=== PATIENT | male | born 1960 | race Caucasian/White ===

== ENCOUNTER → 2018-01-05 11:32 | Outpatient (CLI) | payer BC, SELFPAY ==
[2018-01-05 13:07] LABS: ALT 26 U/L (12-78); AST 17 U/L (15-37); Albumin 4.1 g/dL (3.4-5.0); Alkaline Phosphatase 51 U/L (46-116); Anion Gap 12.6 mmol/L (3-11); BUN 15 mg/dL (7-18); Bilirubin, Total 0.4 mg/dL (0.2-1.0); CO2 24.4 mmol/L (21.0-32.0); CREATININE 1.58 mg/dL (0.70-1.30); Calcium 8.4 mg/dL (8.5-10.1); Chloride 103 mmol/L (98-107); Estimated GFR 45.43 (mL/min/1.73m2); Glucose 103 mg/dL (70-100); Potassium 4.4 mmol/L (3.5-5.1); Sodium 140 mmol/L (136-145); Total Protein 6.9 g/dL (6.4-8.2)
== END ==
PROVIDERS: PCP Nurse Practitioner Family; Visit Provider Nurse Practitioner Family
DX: E83.51 Hypocalcemia (principal)
CPT/HCPCS: 36415; 80053

== ENCOUNTER → 2018-01-06 10:08 | Outpatient (CLI) | payer BC, SELFPAY ==
[2018-01-06 11:57] LABS: Amylase 48 U/L (25-115); Calcium 9.4 mg/dL (8.5-10.1); Magnesium 2.4 mg/dL (1.8-2.4); PHOSPHORUS 4.6 mg/dL (2.6-4.7)
[2018-01-09 10:59] LABS: Parathyroid Hormone,Intact 26 pg/ml (19-88)
[2018-01-10 16:42] LABS: 25-Hydroxy D Total 50 ng/mL; 25-Hydroxy D2 <4.0 ng/mL; 25-Hydroxy D3 50 ng/mL
[2018-01-11 23:24] LABS: 1,25-Dihydroxyvitamin D 34 pg/mL (18-64)
== END ==
PROVIDERS: PCP Nurse Practitioner Family; Visit Provider Nurse Practitioner Family
DX: E83.51 Hypocalcemia (principal)
CPT/HCPCS: 36415; 82306; 82150; 82310; 82652; 83735; 83970; 84100

== ENCOUNTER 2018-06-14 07:20 | Outpatient (CLI) | payer BC, SELFPAY ==
--- NOTE | 2018-06-14 07:23 | DI.RAD_ITS ---
SYMPTOMS/DIAGNOSIS: CHRONIC RT HIP PAIN, M25.551, CHRONIC PAIN, G89.29, ? DJD VS REFERRED FROM LUMBAR RIGHT HIP AND PELVIS: Two views. The right hip is well maintained. The bones are intact and normally mineralized. The sacroiliac joints and symphysis pubis are intact. Moderate degenerative changes are seen in the lower lumbar spine with disc space narrowing, endplate osteophytes and vacuum discs present. IMPRESSION: 1. Negative right hip. 2. Moderate degenerative changes seen in the lumbar spine.
== END 2018-06-14 07:40 ==
PROVIDERS: PCP Nurse Practitioner Family; Visit Provider Nurse Practitioner Family
DX: M25.551 Pain in right hip (principal); G89.29 Other chronic pain; M51.36 Other intervertebral disc degeneration, lumbar region
CPT/HCPCS: 73502

== ENCOUNTER 2019-02-14 13:33 | Outpatient (REF) | payer BC, SELFPAY ==
[2019-02-14 13:17] LABS: Bilirubin Negative (Negative); Blood Trace-intact (Negative); Clarity Clear (Clear); Glucose Negative (Negative); Ketones Negative (Negative); Leukocyte Esterase Negative (Negative); Nitrite Negative (Negative); Specific Gravity 1.015 (1.005-1.025); Urobilinogen 0.2 EU/dL (Up TO 0.2)
[2019-02-14 13:59] LABS: Bacteria Negative HPF (Negative); C & S Indicated? No; Casts Negative LPF (Negative); Crystals Negative HPF (Negative); Epithelial Cells Negative HPF (Negative); Mucus Negative (Negative); Other Cells Rare Renal (Negative); WBC Negative HPF (0-5)
== END 2019-02-14 13:53 ==
LOC: LBN 13:33
PROVIDERS: PCP Nurse Practitioner Family; Visit Provider Nurse Practitioner Gerontology
DX: R31.29 Other microscopic hematuria (principal)
CPT/HCPCS: 81003; 81015

== ENCOUNTER 2019-02-15 08:48 | Outpatient (CLI) | payer BC, SELFPAY ==
[2019-02-15 09:23] LABS: Bilirubin Small (Negative); Blood Moderate (Negative); Clarity Clear (Clear); Glucose Negative (Negative); Ketones 40 mg/dL (Negative); Leukocyte Esterase Negative (Negative); Nitrite Negative (Negative); Urobilinogen 0.2 EU/dL (Up TO 0.2)
[2019-02-15 09:37] LABS: Bacteria Rare HPF (Negative); Casts Negative LPF (Negative); Crystals Negative HPF (Negative); Epithelial Cells Rare HPF (Negative); Mucus Moderate (Negative); RBC 20-50 (0-2); WBC 0-2 HPF (0-5)
[2019-02-15 09:38] LABS: C & S Indicated? No
[2019-02-15 10:03] LABS: ALT 22 U/L (16-63); AST 14 U/L (15-37); Albumin 4.3 g/dL (3.4-5.0); Alkaline Phosphatase 62 U/L (46-116); Anion Gap 8.6 mmol/L (3-11); BUN 13 mg/dL (7-18); Bilirubin, Total 0.8 mg/dL (0.2-1.0); CO2 27.4 mmol/L (21.0-32.0); CREATININE 1.04 mg/dL (0.70-1.30); Calcium 9.7 mg/dL (8.5-10.1); Calculated LDL 94 mg/dL; Chloride 101 mmol/L (98-107); Cholesterol 208 mg/dL (50-200); Glucose 99 mg/dL (70-100); HDL Cholesterol 99 mg/dL (40-60); Sodium 137 mmol/L (136-145); Total Protein 7.7 g/dL (6.4-8.2); Triglyceride 76 mg/dL (30-150)
[2019-02-15 10:11] LABS: TSH (W/Ref FT4) 1.18 uIU/mL (0.36-3.74)
[2019-02-16 10:36] LABS: PSA, Screening 0.8 ng/ml (0-3.5)
== END 2019-02-15 09:08 ==
PROVIDERS: PCP Nurse Practitioner Family; Visit Provider Nurse Practitioner Gerontology
DX: E03.9 Hypothyroidism, unspecified (principal); I10 Essential (primary) hypertension; E78.5 Hyperlipidemia, unspecified; R31.29 Other microscopic hematuria; N40.0 Benign prostatic hyperplasia without lower urinary tract symptoms
CPT/HCPCS: 36415; 80053; 80061; 84153; 81003; 81015; 84443

== ENCOUNTER 2019-05-16 09:35 | Outpatient (CLI) | payer BC, SELFPAY ==
--- NOTE | 2019-05-16 09:11 | DI.RAD_ITS ---
EXAM: XR LUMBAR SPINE COMPLETE INDICATION: r/o bony pathology, tenderness with burning lateral to L4, hip pain rt,. COMPARISON: LUMBAR SPINE COMPLETE from 11/14/2012 TECHNIQUE: 2D digital imaging was performed. FINDINGS: There arefive lumbar type vertebral bodies. There is normal alignment. There is no spondylolysis or spondylolisthesis. Moderate degenerative changes are seen in the lumbar spine, particularly at L4-5 and L5-S1. There is disc space narrowing, subchondral sclerosis and periarticular spurring present. No acute fractures or subluxations are seen. IMPRESSION: Moderate degenerative changes in the lumbar spine.
== END 2019-05-16 09:55 ==
PROVIDERS: PCP Nurse Practitioner Family; Visit Provider Student in an Organized Health Care Education/Training Program
DX: M54.5 Low back pain (principal); M47.817 Spondylosis without myelopathy or radiculopathy, lumbosacral region
CPT/HCPCS: 72110

== ENCOUNTER 2020-02-19 10:37 | Outpatient (REF) | payer BC, SELFPAY ==
[2020-02-20 11:54] LABS: Bilirubin Negative (Negative); Blood Trace-lysed (Negative); Clarity Clear (Clear); Epithelial Cells Rare HPF (Negative); Glucose Negative (Negative); Ketones Negative (Negative); Leukocyte Esterase Negative (Negative); Nitrite Negative (Negative); RBC 0-2 HPF (0-2); Urobilinogen 0.2 EU/dL (Up TO 0.2); WBC Negative HPF (0-5)
[2020-02-20 11:55] LABS: Bacteria Rare HPF (Negative); C & S Indicated? No; Casts Negative LPF (Negative); Crystals Negative HPF (Negative); Mucus Negative (Negative)
== END 2020-02-19 10:57 ==
LOC: LBN 10:37
PROVIDERS: PCP Nurse Practitioner Family; Visit Provider Nurse Practitioner Gerontology
DX: R31.29 Other microscopic hematuria (principal)
CPT/HCPCS: 81003; 81015

== ENCOUNTER 2020-06-10 02:51 | Outpatient (CLI) | payer BC, SELFPAY ==
[2020-06-11 19:29] LABS: COVID-19 RT-PCR UVMMC Result Negative (Negative)
== END 2020-06-10 03:11 ==
PROVIDERS: Surgery; PCP Nurse Practitioner Family; Visit Provider Surgery
DX: Z11.59 Encounter for screening for other viral diseases (principal); Z01.818 Encounter for other preprocedural examination
CPT/HCPCS: U0003

== ENCOUNTER 2020-06-13 06:06 | Day surgery (SDC) | payer BC, SELFPAY ==
[2020-06-13 06:26] VITALS: BP 156/90; PULSE 78; RESP 16; TEMP 37; O2SAT 100
[2020-06-13] MEDS: Lactated Ringers 1,000 ML 80 ML IV (06:43)
--- NOTE | 2020-06-13 07:54 | BOWEL_PTH ---
PATIENT: Ottoniel Dhillon LOC: [facility] U#:[id number] AGE/SX: 60/M ROOM: RE06/13/[address]: Rupa Salguero : 1960 BED: DIS: 06/13/2020 SPEC #: [id number] RECD: 06/13/20 12:13 STATUS: [facility]ERRA REQ #: [id number] KALEY: 06/13/20 07:[address]: Rupa Salguero DEPT: Surgical Specimen RECD BY: Asya Perrin ENTERED: 06/13/20 12:14 SP TYPE: Bowel OTHR DR: Patria Chi, [employer] Tissues: 1 - BIOPSY BOWEL 2 - BIOPSY BOWEL Procedures: GROSS AND MICRO LEVEL 4 Comments: [id number]
--- NOTE | 2020-06-13 08:17 | COLE_ITS ---
Date of service: 06/13/20 Time of Service: 08:17 Colonoscopy Report Date of procedure: 06/13/20 Pre-op diagnosis general: polyps Post-op diagnosis procedure note: other (polyps/diverticula ) Surgeon: Rupa Salguero Anesthesia proc note operative: GETA Estimated blood loss (mL): 1 Pathology: other Disposition: same day Prep: Miralax/Dulcolax Retraction Time: 12 Procedure Description: After informed consent was obtained the patient was taken to the procedure room and placed in a left decubitous position. Monitors were applied and a time out was done. The patients name, date of , procedure, allergies to medications and metal in their body was reviewed. The patient was then sedated. Once sedated and comfortable a rectal exam was done. External exam shows sm ext tag. Internal exam revealed a normal sphincter tone and no palpable masses. The prostate nl. The scope was then introduced and retrofelexed. No internal hemorrhoids were identified. The scope was then advanced to the cecum w/mild difficulty. The TI and appendiceal orifice were identified. The prep was good. Miniscule polyp- 2mm at 80cm; removed w/ a cold focept. Another small,flat <5mm polyp, at 30cm removed w/ cold forcept in total. All specimens are retrieved and no bleeding is noted. He does have small amount of medium sized diverticula confined to the sigmoid colon. There is no signs of active bleeding or infection. There are no AVMs. The mucosa appears pink and healthy. the scope was then slowly retracted over 12 minutes back into the rectum. The scope was removed and the patient was woken up and taken back to Same day surgery in stabl e condition. The patient tolerated the procedure well and there were no immediate complications. Follow up: The patient should follow up in 5-7 years (1 year path pending) unless they develop changes in bowel habits or other new gastrointestinal complaints.
--- NOTE | 2020-06-13 08:21 | W.PM.DSUDISC ---
Discharge Plan Disposition Patient Disposition: HOME Condition: Good Discharge Details Reason For Visit: colonoscopy Attending Provider: Rupa Salguero Primary Care Provider: Patria Chi Home Meds and New Rx's Prescriptions: No Action amlodipine 5 mg tablet 5 mg PO DAILY Qty: 90 RF: 1 atorvastatin 10 mg tablet 10 mg PO DAILY Qty: 90 RF: 1 polyethylene glycol 3350 17 gram/dose powder 238 g PO ONCE Qty: 238 RF: 0 bisacodyl [Dulcolax (bisacodyl)] 5 mg tablet,delayed release (DR/EC) 5 mg PO ONCE Qty: 4 RF: 0 multivitamin [Once Daily] 1 EACH tablet 1 ea PO DAILY RF: 0 aspirin [Lo-Dose Aspirin] 81 MG tablet,delayed release (DR/EC) 81 mg PO DAILY RF: 0 metoprolol succinate 50 mg tablet extended release 24 hr 75 mg PO DAILY Qty: 135 RF: 3 Discharge Instructions Additional Instructions: Findings: diverticula x2 small polyps Follow up: will send a letter w/ results in 2-3 wks and when to repeat the scope. probablt 7-5 yrs start a fiber product, such as psyllium husks daily. Make sure you are moving your bowels regularly and not straining. Please call if you develop: fevers >101.5 Nausea or Vomiting Abdominal pain that is not transient DAY SURGERY UNIT POST COLONOSCOPY INSTRUCTIONS 1. Because there will be medication in your system for the next 24 hours, you may feel a little sleepy. Your coordination will be affected. Therefore: a. Do not drive or operate dangerous equipment for 24 hours. b. Do not drink alcohol beverages for 24 hours (not even beer). c. Plan to go home and rest for the day. 2. Generally there are no restrictions on your activity after a day or so has gone by, but you may feel a bit fatigued for a few days. 3 After you arrive home you may have a light meal and return to a normal diet as you can tolerate it without feeling sick to your stomach. 4. After surgery, you may feel pain or discomfort. This should be only transient, but if it persists please contact your doctor. 5. If there are any questions regarding the findings of your procedure, please feel free to contact your doctor. 6. If you are unable to contact your doctor with a problem, contact the hospital at [phone]. 7. Continue all your regular medications unless directed otherwise. I understand the above instructions and have no questions. Signature of Patient or Responsible Adult Escort Date/Time Name of Responsible Adult Escort Signature of Nurse Date/Time DIVERTICULAR DISEASE OVERVIEW ? A diverticulum is a pouch-like structure that can form through points of weakness in the muscular wall of the colon (ie, at points where blood vessels pass through the wall). Diverticulosis affects men and women equally. The risk of diverticular disease increases with age. It occurs throughout the world but is seen more commonly in developed countries. WHAT IS DIVERTICULAR DISEASE? Diverticulosis ? Diverticulosis merely describes the presence of diverticula. Diverticulosis is often found during a test done for other reasons, such as flexible sigmoidoscopy, colonoscopy, or barium enema. Most people with diverticulosis have no symptoms and will remain symptom free for the rest of their lives. A person with diverticulosis may have diverticulitis, or diverticular bleeding. Diverticulitis ? Inflammation of a diverticulum (diverticulitis) occurs when there is thinning and breakdown of the diverticular wall. This may be caused by increased pressure within the colon or by hardened particles of stool, which can become lodged within the diverticulum. The symptoms of diverticulitis depend upon the degree of inflammation present. The most common symptom is pain in the left lower abdomen. Other symptoms can include nausea and vomiting, constipation, diarrhea, and urinary symptoms such as pain or burning when urinating or the frequent need to urinate. Diverticulitis is divided into simple and complicated forms. ?Simple diverticulitis, which accounts for 75 percent of cases, is not associated with complications and typically responds to medical treatment without surgery. ?Complicated diverticulitis occurs in 25 percent of cases and usually requires surgery. Complications associated with diverticulitis can include the following: ?Abscess ? a localized collection of pus ?Fistula ? an abnormal tract between two areas that are not normally connected (eg, bowel and bladder) ?Obstruction ? a blockage of the colon ?Peritonitis ? infection involving the space around the abdominal organ ?Sepsis ? overwhelming body-wide infection that can lead to failure of multiple organs Diverticular bleeding ? Diverticular bleeding occurs when a small artery located within a diverticulum is eroded and bleeds into the colon. Diverticular bleeding usually causes painless bleeding from the rectum. In approximately 50 percent of cases, the person will see maroon or bright red blood with bowel movements. Is bleeding with a bowel movement normal? ? It is not normal to see blood in a bowel movement; this can be a sign of several conditions, most of which are not serious (eg, hemorrhoids) but some of which are serious and require immediate treatment. Anyone who sees blood after a bowel movement should consult with their healthcare provider to determine if further testing or evaluation is needed. DIVERTICULOSIS AND DIVERTICULITIS DIAGNOSIS ? Diverticulosis is often found during tests performed for other reasons. ?Barium enema ? This is an x-ray study that uses barium in an enema to view the outline of the lower intestinal tract. This is an older test and has been largely replaced by computed tomography (CT) scan. ?Flexible sigmoidoscopy ? This is an examination of the inside of the sigmoid colon with a thin, flexible tube that contains a camera. ?Colonoscopy ? This is an examination of the inside of the entire colon. ?CT scan ? A CT scan is often used to diagnose diverticulitis and its complications. If diverticulitis (not just diverticulosis) is suspected, the above three tests should not be used because of the risk of perforation. TREATMENT Diverticulosis ? People with diverticulosis who do not have symptoms do not require treatment. However, most clinicians recommend increasing fiber in the diet, which can help to bulk the stools and possibly prevent the development of new diverticula, diverticulitis, or diverticular bleeding. Fiber is not proven to prevent these conditions in all patients but may help to control recurrent episodes in some. Increase fiber ? Fruits and vegetables are a good source of fiber. Fiber content of packaged foods can be calculated by reading the nutrition label. Seeds and nuts ? Patients with diverticular disease have historically been advised to avoid whole pieces of fiber (such as seeds, corn, and nuts) because of concern that these foods could cause an episode of diverticulitis. However, this belief is completely unproven. We do not suggest that patients with diverticulosis avoid seeds, corn, or nuts. Diverticulitis ? Treatment of diverticulitis depends upon how severe your symptoms are. Home treatment ? If you have mild symptoms of diverticulitis (mild abdominal pain, usually left lower abdomen), you can be treated at home with a clear liquid diet and oral antibiotics. However, if you develop one or more of the following signs or symptoms, you should seek immediate medical attention: ?Temperature >100.1?F (38?C) ?Worsening or severe abdominal pain ?An inability to tolerate fluids Hospital treatment ? If you have moderate to severe symptoms, you may be hospitalized for treatment. During this time, you are not allowed to eat or drink; antibiotics and fluids are given into a vein. If you develop an abscess of the colon, you may require drainage of the abscess (usually performed by placing a drainage tube across the abdominal wall) or by surgically opening the affected area. Surgery ? If you develop a generalized infection in the abdomen (peritonitis), you will usually require an emergency operation. A two-part operation may be necessary in some cases. ?The first operation involves removal of the diseased colon and creation of a colostomy. A colostomy is an opening between the colon and the skin, where a bag is attached to collect waste from the intestine. The lower end of the colon is temporarily sewed closed to allow it to heal. ?Approximately three to six months later, a second operation is performed to reconnect the two parts of the colon and close the opening in the skin. You are then able to empty your bowels through the rectum. Sometimes patients require up to a year to recover from the first operation, depending on how sick they were. In non-emergency situations, the diseased area of the colon can be removed and the two ends of the colon can be reconnected in one operation, without the need for a colostomy. Surgery versus medical therapy ? An operation to remove the diseased area of the colon may be necessary if you do not improve with medical therapy. After an episode of uncomplicated diverticulitis, elective surgery is generally not required as the risk of another attack or requiring emergency surgery is low. However, patients with persistent symptoms attributable to diverticulitis, a history of complicated diverticulitis, or a compromised immune system should be evaluated for possible surgery to prevent another attack. In such patients, another attack has been associated with a higher risk of complications or . Of course, the decision will also depend in part upon your other medical conditions and ability to undergo surgery. In many cases, an elective operation can be performed laparoscopically, using small incisions, rather than the typical vertical (up and down) abdominal incision. Laparoscopic surgery usually allows you to recover more quickly and shortens the hospital stay. After diverticulitis resolves ? After an episode of diverticulitis resolves, if you have not had a recent colonoscopy, the entire length of the colon should be evaluated to determine the extent of disease and to rule out the presence of abnormal lesions such as polyps or cancer. Recommended tests include colonoscopy, barium enema and sigmoidoscopy, or CT colonography. Diverticular bleeding ? Most cases of diverticular bleeding resolve on their own. However, some people will need further testing or treatment to stop bleeding, which may include a colonoscopy, angiography (a treatment that blocks off the bleeding artery), bleeding scan, or surgery. DIVERTICULAR DISEASE PROGNOSIS Diverticulosis ? Over time, diverticulosis may cause no problems or it may cause episodes of bleeding and/or diverticulitis. Approximately 15 to 25 percent of people with diverticulosis will develop diverticulitis, while 5 to 15 percent will develop diverticular bleeding. Diverticulitis ? Approximately 85 percent of people with uncomplicated diverticulitis will respond to medical treatment, while approximately 15 percent of patients will need an operation. After successful treatment for a first attack of diverticulitis, one-third of patients will remain asymptomatic, one-third will have episodic cramps without diverticulitis, and one-third will go on to have a second attack of diverticulitis. The prognosis tends to remain similar following a second attack of diverticulitis. Only 10 percent of people remain symptom-free after a second attack. Subsequent attacks tend to be of similar severity, not increasing in severity as previously believed. High Fiber Diet What is Dietary Fiber? All fiber comes from plants, bushes, oliver or trees. Of course, the ones that we eat provide us with fruits, vegetables and grains. There are many different types of fiber but the three that are most important to the health of the body are: Insoluble Fiber This fiber does not dissolve in water, nor is it fermented by the bacteria residing in the colon. Rather, it retains water and in so doing, helps to promote a larger, bulkier and more regular bowel activity. This, in turn, may be important in preventing disorder such as diverticulosis and hemorrhoids, and in sweeping out certain toxins and cancer causing carcinogens. Sources of insoluble fiber are: ? whole grain wheat and other whole grains ? corn bran, including popcorn, unflavored and unsweetened ? nuts and seeds ? potatoes and the skins from most fruits from trees such as apples, bananas and avocados ? many green vegetables such as green beans, zucchini, celery and cauliflower ? some fruit plants such as tomatoes and kiwi Soluble Fiber These fibers are fermented or used by the colon bacteria as a food source or nourishment. When these good bacteria grow and thrive, many health benefits occur in both the colon and the body. Soluble fiber is present in some degree in most edible plant foods, but the ones with the most soluble fiber include: ? legumes such as peas and most beans, including soybeans ? oats, rye and barley ? many fruits such as berries, plums, apples bananas and pears ? certain vegetables such as broccoli and carrots ? most root vegetables ? psyllium husk supplement products Prebiotic Soluble Fiber These are relatively newly discovered soluble plant fibers. The technical name for this fiber is inulin or fructan. When these soluble fibers are fermented by the good colon bacteria, some further significant health benefits have been shown to occur by research in many medical centers. These soluble prebiotic fibers occur in significant amounts in: ? asparagus ? yams ? onions ? garlic ? bananas ? leeks ? agave ? chicory and other root vegetables such as [place] artichokes ? wheat, rye and barley (smaller amounts) Benefits of a High Fiber Diet The health benefits of a high fiber diet, consumed on a regular basis and reaching recommended amounts (below), are now fairly well-defined. There are some additional benefits in the early research stage with the prebiotic soluble fibers. What is now known regarding a high fiber diet include: Bowel Regularity A high fiber diet promotes regularity with a softer, bulkier and regular stool pattern. This decreases the chance of hemorrhoids, diverticulosis and perhaps colon cancer. Cholesterol and Reduced Triglycerides The soluble fibers are the ones that will reduce cholesterol levels when used on a regular basis. Psyllium husk and prebiotic soluble fiber will also reduce cholesterol. They may also reduce the incidence of coronary heart disease. Oats, flax seeds and legumes or beans are the recommended fibers. Colon Polyps and Cancer It is still not certain if a high fiber diet helps prevent colon cancer. Considerable research suggests that this may occur. Certainly it makes sense to increase regularity and so speed the movement of cancer causing carcinogens through the bowel. In addition, reducing a heavy meat diet reduces the bile flow from the liver in a favorable way. This, too, reduces the amount of carcinogens that reach and are manufactured in the colon. Finally, a high fiber diet, including prebiotic soluble fiber, increases the integrity and health of the wall of the colon. The risk of cancer may be reduced. Colon Wall Integrity A high fiber diet changes the bacterial makeup of the colon toward a more favorable balance. For instance, it is known that those people with obesity, diabetes type 2 and inflammatory bowel disease have a predominance of bad bacteria in the colon. This, in turn, may render the bowel wall weak and allow bacteria and, indeed, even toxins to seep through. A high fiber diet with a modest reduction in animal and meat products may return the bacterial makeup to a more positive balance. This, in particular, has been seen when the soluble fiber prebiotics are added to the diet. Blood Sugar Soluble fiber such as in legumes (beans), oats and in prebiotic fibers slows the absorption of blood sugar and so helps regulate the sugar in the blood. Insoluble fiber on a regular basis is associated with reduced risk of type 2 diabetes. Weight Loss High fiber diets are more filling and give a sense of fullness sooner than an animal and meat based diet does. In addition, the soluble prebiotic fibers have been shown to turn off the hunger hormones produced in the wall of the gut and to increase the hormones that give a sense of fullness. Those hormones are made in the wall of the gut. New medical research has shown that the bacterial makeup in the colon in overweight people is abnormal to the extent that they manufacture and absorb almost twice the number of calories through the colon wall as do normals. Prebiotic fibers (below) will help change this hormonal balancein a favorable way. Bacteria and the Function of the Colon The colon finishes the digestive process. Hopefully, the waste products move through in a nice regular manner. Insoluble fibers help this process by retaining water and so producing a bulkier, softer stool, which is easy to pass. The additional role of the colon is to provide a home for an enormous number of micro-organisms, mostly bacteria. Recent research has shown that there are over 1,000 species of bacteria with a total bacterial count ten times the number of cells in the body. These bacteria play a major role in keeping the colon wall itself healthy. In addition, these good bacteria produce a very strong immune system for the body. They significantly increase calcium absorption and bone density. They provide other documented benefits. It is the soluble fibers in the diet that are so effective in stimulating the growth of good colon bacteria. How Much is Enough? The amount of fiber in food is measured in grams. National nutritional authorities recommend the following amounts of dietary fiber daily. Under Age 50 Over Age 50 Men 38 grams 30 grams Women 25 grams 21 grams For a week or so, it is best to tally the amount of fiber you are consuming. Boxed and packaged foods will have the amount of fiber per serving on the nutrition label. Which Fibers and Which Foods are Best? As noted, healthy fiber is only found in plants. The three major categories are whole grains, fruits and vegetables. Whole Grains Wheat, oats, barley, wild or brown rice, amaranth, buckwheat, bulgur, corn, millet, quinoa, rye, sorghum, teff and triticals. By far, wheat, oats and wild or brown rice are most common. Always buy whole grain products. White bread, baked goods and rolls almost always are made from wheat flour. Wheat flour is white because most of the fiber, vitamins and other nutrients have been removed. Try not buy enriched grains. What this means is that simple white flour has had vitamins added to it by the director of planning. The word, enriched, implies a good and healthy product. On the contrary, enriched means that most of the fiber has been removed and a few vitamins added. Fruits Fruits come from trees such as apple and pear or from bushes or oliver. You should eat a wide variety of fruits, preferably with every meal. In many cases, the skin of a fruit such as apple will contain much of the insoluble fiber while the pulp contains most of the soluble fiber. To the extent possible, buy organic fruits as these will have little or no pesticides. Always wash fruit. Vegetables Eat a wide variety of vegetables. They should be a mainstay of lunch and dinners. Frozen vegetables retain as much nutrition and fiber as fresh vegetables. As with fruit, try to buy organic to reduce any residual pesticide ingestion. Wash fresh vegetables thoroughly. Cruciferous vegetables such as broccoli, [place] sprouts and cauliflower contain certain chemicals such as sulforaphane. This substance has very strong anti-cancer properties and should be eaten frequently. Legumes, Beans, Peas and Soybeans These vegetables have plenty of soluble fiber and should be part of a varied vegetable intake. Beans, in particular, contain a certain type of fiber that may lead to harmless gas or bloating. Nuts and Seeds These are rich sources of fiber and are a good substitute for sweets such as candies and baked sweet goods. While nuts and seeds are rich in fiber, they also contain vegetable fat and so can and do add calories. Read the Labels As noted, fresh and frozen foods are usually better. They have good nutrition and few, if any, chemicals added to them. When buying packaged foods and, in particular grains, look for three things: ? The first word on the label should be whole, such as whole wheat or whole grain. ? Check out the calories and the amount of fiber in a serving. ? How many and what other additives or chemicals are added. Fewer is always better. Do you know what each additive does? Some are added not for the benefit of the beeswax bleacher but rather for manufacturers. These could and do include sugar, artificial flavor, chemicals to prevent oxidation and spoilage, emulsifiers to blend the product. You have to be a laborer cutting tool. Fiber Facts, Nuggets and Pearls ? For breakfast you can easily get the day started well by using a high fiber, whole grain cereal. Check the labels. Add fruit such as blueberries and bananas. If you are an egg eater, use whole wheat or grain toast. Adding wheat germ gives you a good fiber kick. ? Always use whole grain or wheat with rolls and sandwiches. Does your fast food store not have them? Perhaps you look elsewhere. Eating an occasional black harper or veggie burger provides variety. ? Snacks should consist of fruit and/or nuts. While nuts are loaded with fiber, they are an energy rich food, meaning they have a lot of calories in a small packet. ? Fruit juices should contain pulp. Clear juices such as clear orange, pear or apple juice contain little fiber and have a lot of fructose. Prune juice is usually high in fiber. ? Homemade soups ? adding fresh or frozen vegetables to a chicken or vegetable stock is a good way to start homemade soup. ? Salads ? adding cooked and then chilled vegetables provide great flavoring to almost any salad. Remember, a atkins salad has lots of cooked corn in it. Small slices of apples or oranges and nuts such as chopped walnuts or sliced almonds always adds taste, variety and fiber to almost any salad. ? Fruit ? Try to eat fruit of some type with almost every meal. ? Rethink how you place the various foods on your dinner plate. Reducing the portions of the meat or animal food portion to the side with equal or more portions of vegetables, legumes and fruits portion always allows for more fiber. There was never anything magic about making the meat or animal food portion the main part of the dinner plate. Eating from smaller plates can, over time, trick your mind and termite exterminator habit of using a dinner plate. Again, there is nothing magic in an 11, 12, or 13 inch dinner plate. Fiber Supplements There are a variety of fiber supplements available on the food or pharmacy shelves. Psyllium This soluble plant fiber has been used in [place] for over 2,000 years. It is a soluble fiber with mucilage in it. This acts to retain a lot of water and also is fermented by colon bacteria. When 7 grams a day are used, it does lower cholesterol. Metamucil in various forms is psyllium. Methyl Cellulose All the cellulose products come from finely ground wood chips which are then treated in a variety of ways such as boiling in acids. Methyl cellulose is an insoluble fiber which does dissolve in water. It is also an emulsifier, meaning it blends oils and water. Citrucel is methyl cellulose (MC). MC may not be appropriate for Crohn?s disease or ulcerative colitis as several medical studies have shown that certain emulsifiers dissolve the mucous lining of the colon in animals prone to Crohn?s disease. This then allows bacteria to invade the underlying tissue. Inulin Inulin is a soluble prebiotic fiber found in many foods and which are fermented mostly in the left side of the colon. It is available in a supplement as generic inulin and in Fiber Choice. Oligofructose FOS These are also prebiotic fibers. They are fermented very quickly in the right side of the colon. Prebiotin This product is a combination of oligofructose, which feeds the bacteria in the right side of the colon and inulin, which does the same in the left side of the colon. There seems to be a benefit for this particular formula based on medical research. Prebiotic Soluble Fiber These may be the healthiest of all the soluble fibers. They grow in many plants and have had a great deal of research done on them in the last 10-15 years. These fibers are found in asparagus, yams and other root vegetables such as chicory, garlic, onion, leeks and in smaller amounts in wheat. This research has shown the following: ? Increase in good and decrease in bad colon bacteria ? Increase calcium absorption and enhanced bone mass ? Enhanced immune system ? Appetite and weight control by changing the hormone appetite signals to the brain ? May decrease colon cancer incidence ? Reduce or correct a leaky colon Eating a wide variety of plant food up to the recommended amount will likely give you enough prebiotic fiber. Supplements such as Prebiotin can be added to the diet. Short Chain Fatty Acids (SCFA) Some rather remarkable research findings have shown that one of the benefits of ingesting a lot of soluble fiber, in particular the prebiotic ones, results in larger amounts of SCFAs in the colon. These SCFAs are made by the good bacteria in the colon such as Bifidobacter and Lactobacillus. These small molecules have been shown to do the following: ? Enhance the health and integrity of the colon wall ? Provide nourishment for the cells that actually line the colon ? Increases the acidity of the colon which is a very real health benefit ? Stabilize blood sugar for diabetics ? Reduce blood cholesterol and triglyceride ? Significantly enhance immunity ? May be a benefit for Crohn?s disease and ulcerative colitis patients Fiber and Gas Everyone has intestinal gas and that is a good thing. It means that bacteria, hopefully the good ones, are thriving. The normal amount of flatus passed each day depends on sex and what is eaten. The normal number of flatus is 10-20 times a day. When the bacteria that make intestinal gases are growing, it also means that other good bacteria are using the same fibers to grow and produce multiple health benefits, including the production of healthy short-chain fatty acids. These substances are produced quietly in the colon and produce many health-related outcomes. Soluble fiber should always be used in a gradual manner. If too much is consumed at any one time, then excess, but harmless, intestinal gas can occur. People with irritable bowel syndrome are particularly prone to bloating and mild cramping. In this instance, soluble fiber in the diet or supplement should be used in small doses and increased gradually. Finally, prebiotic fibers tend to cause the production of short-chain fatty acids which acidify the colon. This, in turn, reduces or stops the growth of bacteria that make the smelly hydrogen sulfide gases that produce noxious flatus. People who consume many vegetables with prebiotics or take a prebiotic fiber supplement often have non-odoriferous flatus. Fiber and Irritable Bowel Syndrome Irritable bowel syndrome (IBS) is one of the most common disorders of the lower digestive tract. The symptoms of IBS can be quite varied. They can be a mix of several symptoms such as constipation, diarrhea, crampy abdominal discomfort, bloating and gas. An attack of IBS can be triggered by emotional tension and anxiety, poor dietary habits and certain medications. It is now known that infections in the intestine can lead to long-term IBS symptoms. Increased amounts of fiber in the diet can help relieve the symptoms of irritable bowel syndrome by producing soft, bulky stools. This helps to normalize the time it takes for the stool to pass through the colon. Recent medical research with newer techniques has shown some surprising and dramatic findings for IBS patients. Specifically, there is a very significant and abnormal shift of bacteria from those that provide health benefits to those bad bacteria that we really do not want in the gut. The technical name for this bad group of bacteria is called Firmicutes. Along with this abnormal bacterial collection, there is a smoldering low-grade inflammation in the gut wall that may contribute to symptoms. The goal for IBS patients should be to gradually increase the soluble dietary fibers in the diet so as to promote the growth of good bacteria and so suppress the bad ones along with the associated inflammation. IBS patients need to be careful of the amount of soluble fiber they consume. The reason for this is that, while the good colon bacteria thrive on these fibers and produce health benefits, other gas-forming bacteria may generate excessive but harmless gas and subsequent bloating. Thus, soluble plant fibers or a dietary prebiotic supplement should be taken in small initial doses and then gradually increased to tolerance. Fiber and Colon Polyps/Cancer Colon cancer is a major health problem. This disease is most common in Western cultures. It is not seen very often in rural cultures where the diet is mostly plant based. Usually, colon cancer starts out as a colon polyp, a benign mushroom-shaped growth. In time it grows, and in some people it becomes cancerous. Colon cancer is usually always curable if polyps are removed when found or if surgery is performed at an early stage. It is now known that people can inherit the risk of developing colon cancer, but diet is important, too. As noted, there is a very low rate of colon cancer in residents of countries where grains are unprocessed and retain their fiber. It seems that in the [place] world, cancer-containing agents (carcinogens) remain in contact with the colon wall for a longer time and in higher concentrations. So, a large bulky stool may act to dilute these carcinogens by moving them through the bowel more quickly. Less carcinogenic exposure to the colon may mean fewer colon polyps and less cancer. A very current review of the entire world?s literature on the effect of fiber on colon polyps and cancer prevention has shown rather clearly that for every 10 grams of fiber added to the diet, there is a 10% reduction in incidence of colon cancer. So the recommended 30 gram fiber diet would result in a 30% less chance of getting these tumors. There are also substances produced in the colon by the good bacteria that seem to retard certain pre-cancer factors from developing. They are called short-chain fatty acids (SCFA). See above for description of SCFAs. A high fiber diet increases these substances. So, the combination of dietary fiber and the production of short-chain fatty acids have a clear health benefit. Fiber and Diverticulosis Prolonged, vigorous contraction of the colon over a long period of time may result in diverticulosis. This increased pressure causes small and, eventually, larger ballooning pockets to form. These pockets by themselves cause no problem. However, sometimes they become infected (diverticulitis) or even break open (perforate) causing infection or inflammation within the abdomen (peritonitis). A high fiber diet increases the bulk in the stool and thereby reduces the pressure within the colon. By so doing, the formation of pockets may be reduced or possibly even stopped. In the past, many physicians were fearful that seeds as in tomatoes, nuts or berries were harmful and could get inside these pockets and rattle around, causing damage. We now know that this has never been the case and that these foods contain lots of fiber and are actually beneficial for diverticulosis patients. Certain bulking agents such as psyllium are traditional types of bulk producing supplements. Psyllium is a soluble fiber. Combining it with insoluble fiber as in wheat bran or corn bran (no gluten) can enhance this bulking effect even more. A product containing a prebiotic, psyllium and wheat bran is probably a very good combination for bowel regularity. Prebiotin Regularity/Diverticulosis is one such product. Activity:: No strenuous activity or lifting over 20 pounds x 24 hours. Diet:: Small light meals x24 hours if needed Discharge Orders Discharge Orders: Discharge Order (Routine); Ordered 06/13/20 Ordered By: Rupa Salguero DS: Diagnosis Discharge Diagnosis (1) Adenomatous polyps: Status: Acute (2) Diverticula of colon: Status: Acute
[2020-06-13 08:33] VITALS: BP 108/71; PULSE 62; RESP 16; TEMP 36.7; O2SAT 100
== END 2020-06-13 08:59 | disposition home or self-care (01) ==
PROVIDERS: PCP Nurse Practitioner Family; Visit Provider Surgery
PROC: 0DJD8ZZ Inspection of Lower Intestinal Tract, Via Natural or Artificial Opening Endoscopic (ICD-10-PCS; CPT 45378; principal; 2020-06-13 07:30)
DX: Z12.11 Encounter for screening for malignant neoplasm of colon (principal); Z86.010 Personal history of colon polyps; K57.30 Diverticulosis of large intestine without perforation or abscess without bleeding; Z80.0 Family history of malignant neoplasm of digestive organs; I10 Essential (primary) hypertension; K21.9 Gastro-esophageal reflux disease without esophagitis; K63.5 Polyp of colon
CPT/HCPCS: 45380; 88305; J2001; J2250; J2405; J2704

== ENCOUNTER 2020-08-04 09:44 | Outpatient (CLI) | payer BC, SELFPAY ==
[2020-08-05 11:47] LABS: COVID-19 RT-PCR UVMMC Result Negative (Negative)
== END 2020-08-04 09:45 | disposition home or self-care (01) ==
LOC: LBO 09:44
PROVIDERS: PCP Nurse Practitioner Family; Visit Provider Nurse Practitioner Family
DX: Z20.822 Contact with and (suspected) exposure to COVID-19 (principal)
CPT/HCPCS: U0003

== ENCOUNTER 2020-09-03 03:38 | Outpatient (CLI) | payer BC, SELFPAY ==
[2020-09-03 07:10] LABS: Abs Immature Grans 0.02 10^3/uL (0.0-0.06); Absolute Basophil Count 0.04 10^3/uL (0.0-0.2); Absolute Eosinophil Count 0.12 10^3/uL (0.0-0.7); Absolute Lymphocyte Count 2.22 10^3/uL (1.2-3.4); Absolute Monocyte Count 0.65 10^3/uL (0.1-0.8); Absolute Neutrophil Count 3.51 10^3/uL (1.2-6.7); Basophils % 0.6; Eosinophils % 1.8; HCT 44.2 % (40.0-50.0); Immature Grans % 0.3; Lymphocytes % 33.8; MCH 31.1 pg (27.0-33.0); MCHC 33.9 % (32.0-36.0); MCV 91.7 fL (80-95); MPV 8.6 fL (8.0-11.0); Monocytes % 9.9; Neutrophils % 53.6; Nucleated RBC 0 %; Platelet Count 284 10^3/uL (130-400); RBC 4.82 10^6/uL (4.36-5.78); RDW 13.4 % (11.8-14.1); WBC 6.56 10^3/uL (4.4-10.8)
[2020-09-03 08:25] LABS: ALT 30 U/L (16-63); AST 20 U/L (15-37); Albumin 4.2 g/dL (3.4-5.0); Alkaline Phosphatase 48 U/L (46-116); BUN 16 mg/dL (7-18); Bilirubin, Total 0.5 mg/dL (0.2-1.0); CREATININE 1.1 mg/dL (0.70-1.30); Calculated LDL 70 mg/dL (<100); Chloride 103 mmol/L (98-107); Cholesterol 175 mg/dL (<200); Glucose 118 mg/dL (74-106); HDL Cholesterol 100 mg/dL (40-60); Potassium 5.2 mmol/L (3.5-5.1); Sodium 141 mmol/L (136-145); Total Protein 7.2 g/dL (6.4-8.2); Triglyceride 29 mg/dL (<150)
[2020-09-03 10:05] LABS: Hemoglobin A1C 5.8 % (<5.7)
== END 2020-09-03 03:39 | disposition home or self-care (01) ==
LOC: LBO 03:38
PROVIDERS: PCP Nurse Practitioner Family; Visit Provider Nurse Practitioner Family
DX: I10 Essential (primary) hypertension (principal); R73.01 Impaired fasting glucose; E78.5 Hyperlipidemia, unspecified; Z51.81 Encounter for therapeutic drug level monitoring
CPT/HCPCS: 36415; 80053; 80061; 83036; 85025

== ENCOUNTER 2020-09-05 10:12 | Outpatient (REF) | payer BC, SELFPAY ==
[2020-09-05 13:37] LABS: Potassium 4.7 mmol/L (3.5-5.1)
== END 2020-09-05 10:13 | disposition home or self-care (01) ==
LOC: LBN 10:12
PROVIDERS: PCP Nurse Practitioner Family; Visit Provider Nurse Practitioner Family
DX: E87.5 Hyperkalemia (principal)
CPT/HCPCS: 84132

== ENCOUNTER 2021-01-23 20:29 | Outpatient (REF) | payer BC, SELFPAY ==
[2021-01-25 12:51] LABS: COVID-19 RT-PCR UVMMC Result Negative (Negative)
== END 2021-01-23 20:30 | disposition home or self-care (01) ==
LOC: LBN 20:29
PROVIDERS: PCP Nurse Practitioner Family; Visit Provider Student in an Organized Health Care Education/Training Program
DX: Z20.822 Contact with and (suspected) exposure to COVID-19 (principal); R05 Cough
CPT/HCPCS: U0003

== ENCOUNTER → 2021-01-26 15:58 | Outpatient (CLI) | payer BC, SELFPAY ==
--- NOTE | 2021-01-26 12:23 | DI.RAD_ITS ---
Exam(s) XR CHEST 2V PA LATERAL EXAM: XR CHEST 2V PA LATERAL CLINICAL HISTORY: r/o pneumonia R05 COUGH. TECHNIQUE: 2D digital imaging was performed. COMPARISON: CR CHEST 2 VIEWS PA,LAT from 11/21/2017 FINDINGS: Heart size is normal. The mediastinum is not widened. Lungs are clear. No infiltrates nor pleural effusions. IMPRESSION: No acute pulmonary findings.No significant change compared to November 2017. DATA REPOSITORY: RADIATION DOSE DELIVERED:
== END ==
PROVIDERS: PCP Nurse Practitioner Family; Visit Provider Student in an Organized Health Care Education/Training Program
DX: R05 Cough (principal)
CPT/HCPCS: 71046

== ENCOUNTER 2021-03-02 14:51 | Outpatient (REF) | payer BC, SELFPAY ==
[2021-03-02 14:21] LABS: Bilirubin Negative (Negative); Blood Small (Negative); Clarity Clear (Clear); Glucose Negative (Negative); Ketones Negative (Negative); Leukocyte Esterase Negative (Negative); Nitrite Negative (Negative); Specific Gravity 1.025 (1.005-1.025)
[2021-03-02 14:28] LABS: Bacteria Negative HPF (Negative); Casts Negative LPF (Negative); Crystals Negative HPF (Negative); Epithelial Cells Rare HPF (Negative); Mucus Negative (Negative); WBC Negative HPF (0-5)
[2021-03-02 14:29] LABS: C & S Indicated? No
== END 2021-03-02 14:52 | disposition home or self-care (01) ==
LOC: LBN 14:51
PROVIDERS: PCP Nurse Practitioner Family; Visit Provider Nurse Practitioner Gerontology
DX: R31.29 Other microscopic hematuria (principal)
CPT/HCPCS: 81003; 81015

== ENCOUNTER 2021-03-03 03:58 | Outpatient (CLI) | payer BC, SELFPAY ==
[2021-03-03 17:24] LABS: PSA, Screening 0.6 ng/mL (0.0-4.5)
== END 2021-03-03 03:59 | disposition home or self-care (01) ==
LOC: LBO 03:58
PROVIDERS: PCP Nurse Practitioner Family; Visit Provider Nurse Practitioner Gerontology
DX: N40.0 Benign prostatic hyperplasia without lower urinary tract symptoms (principal); Z12.5 Encounter for screening for malignant neoplasm of prostate
CPT/HCPCS: 36415; 84153

== ENCOUNTER 2021-08-03 15:20 | Outpatient (REF) | payer BC, SELFPAY ==
[2021-08-04 20:16] LABS: Influenza A RNA Result Negative (Negative); Influenza B RNA Result Negative (Negative); RSV RNA Result Negative (Negative)
== END 2021-08-03 15:21 | disposition home or self-care (01) ==
LOC: LBN 15:20
PROVIDERS: PCP Nurse Practitioner Family; Visit Provider Family Medicine
DX: J01.90 Acute sinusitis, unspecified (principal)
CPT/HCPCS: 87631

== ENCOUNTER 2021-09-24 02:29 | Outpatient (CLI) | payer BC, SELFPAY ==
[2021-09-24 08:21] LABS: Abs Immature Grans 0.01 10^3/uL (0.0-0.06); Absolute Basophil Count 0.06 10^3/uL (0.0-0.2); Absolute Eosinophil Count 0.27 10^3/uL (0.0-0.7); Absolute Lymphocyte Count 2.21 10^3/uL (1.2-3.4); Absolute Monocyte Count 0.78 10^3/uL (0.1-0.8); Absolute Neutrophil Count 4.49 10^3/uL (1.2-6.7); Basophils % 0.8; Eosinophils % 3.5; HCT 40.8 % (40.0-50.0); HGB 13.9 g/dL (13.5-17.5); Immature Grans % 0.1; Lymphocytes % 28.3; MCH 31.3 pg (27.0-33.0); MCHC 34.1 % (32.0-36.0); MCV 91.9 fL (80-95); Neutrophils % 57.3; Platelet Count 261 10^3/uL (130-400); RBC 4.44 10^6/uL (4.36-5.78); RDW 13.7 % (11.8-14.1); RDW-SD 47.2 fL; WBC 7.82 10^3/uL (4.4-10.8)
[2021-09-24 08:40] LABS: Hemoglobin A1C 5.6 % (<5.7)
[2021-09-24 10:02] LABS: ALT 21 U/L (16-63); AST 16 U/L (15-37); Albumin 4.2 g/dL (3.4-5.0); Alkaline Phosphatase 47 U/L (46-116); Anion Gap 6.4 mmol/L (3-11); BUN 21 mg/dL (7-18); Bilirubin, Total 0.4 mg/dL (0.2-1.0); CO2 28.6 mmol/L (21.0-32.0); Calcium 8.8 mg/dL (8.5-10.1); Calculated LDL 85 mg/dL (<100); Chloride 101 mmol/L (98-107); Cholesterol 183 mg/dL (<200); Glucose 101 mg/dL (74-106); HDL Cholesterol 93 mg/dL (40-60); Potassium 5.2 mmol/L (3.5-5.1); Sodium 136 mmol/L (136-145); Triglyceride 25 mg/dL (<150)
== END 2021-09-24 02:30 | disposition home or self-care (01) ==
LOC: LBO 02:29
PROVIDERS: PCP Nurse Practitioner Family; Visit Provider Nurse Practitioner Family
DX: I10 Essential (primary) hypertension (principal); E78.5 Hyperlipidemia, unspecified; R73.01 Impaired fasting glucose; Z51.81 Encounter for therapeutic drug level monitoring
CPT/HCPCS: 36415; 80053; 80061; 83036; 85025

== ENCOUNTER 2021-10-06 00:34 | Outpatient (CLI) | payer BC, SELFPAY ==
--- NOTE | 2021-10-06 15:26 | DI.RAD_ITS ---
Exam(s) XR SHOULDER LT COMPLETE 2+V EXAM: XR SHOULDER LT COMPLETE 2+V CLINICAL HISTORY: chronic L shoulder pain, decreased rom, G89.29, M25.512, M25.619. TECHNIQUE: 2D digital imaging was performed. COMPARISON: No exams were available for comparison FINDINGS: No evidence of fracture or dislocation. However, there are advanced [id number] osteoarthritic dege nerative changes in the glenohumeral joint and a large reich-type osteophyte on the inferior articula r surface of the humeral head. No calcifications in the subacromial space. AC joint appears unremar kable. No osseous lesions. No soft tissue calcifications. There are advanced osteoarthritic degenerative changes glenohumeral joint. IMPRESSION: DATA REPOSITORY: RADIATION DOSE DELIVERED:
== END 2021-10-06 00:54 ==
LOC: DI 00:34
PROVIDERS: PCP Nurse Practitioner Family; Visit Provider Nurse Practitioner Family
DX: M25.512 Pain in left shoulder (principal); M25.612 Stiffness of left shoulder, not elsewhere classified; G89.29 Other chronic pain; M19.012 Primary osteoarthritis, left shoulder
CPT/HCPCS: 73030

== ENCOUNTER 2021-11-06 01:57 | Outpatient (CLI) | payer BC, SELFPAY ==
[2021-11-06] MEDS: Inhaler, Assist Device 1 EACH MC (09:00)
[2021-11-06] MEDS: Albuterol HFA 18 GM 200 PUFF INH IH (09:00)
--- NOTE | 2021-11-09 12:58 | W.PFT ---
Date of service: 11/09/21 Time of Service: 08:03 Pulmonary Function Test Result Requesting Provider Patria Chi Indications: Chronic cough Interpretation Spirometry: There is no airflow limitation, there is no significant bronchodilator response. Lung Volumes: Lung volumes are within normal limits. Diffusion Capacity: Diffusion is normal Airway Pressure: Airways resistance is normal. Impression Normal pulmonary function testing. Clinical Correlation therefore is recommended.
== END 2021-11-06 01:58 | disposition home or self-care (01) ==
LOC: RT 01:58
PROVIDERS: PCP Nurse Practitioner Family; Visit Provider Nurse Practitioner Family
DX: R05.8 Other specified cough (principal); Z72.0 Tobacco use
CPT/HCPCS: 94060; 94726; 94729

== ENCOUNTER 2021-11-19 02:32 | Outpatient (CLI) | payer BC, SELFPAY ==
--- NOTE | 2021-11-19 07:30 | DI.RAD_ITS ---
Exam(s) RF JOINT INJECTION FLUORO GUID EXAM: RF JOINT INJECTION FLUORO GUID CLINICAL HISTORY: L SHOULDER PAIN,M75.22,OA AND TENDINITIS,M19.012,FLUORO GUIDED INJECTION TECHNIQUE: Fluoroscopy provided. Radiologist not present. CONTRAST MATERIAL: None COMPARISON: No exams were available for comparison FINDINGS: Fluoroscopy was provided for therapeutic left shoulder injection. Submitted image(s) reveal needle tip superomedial aspect humeral head. Intra-articular contrast inje cted. Please refer to the procedure report for complete details. Cumulative Dose: Ka,r=not given mGy IMPRESSION: RADIATION DOSE DELIVERED:
--- NOTE | 2021-11-19 14:42 | W.PROCNOTE ---
Date of service: 11/19/21 Time of Service: 14:42 Procedure Note Date of procedure: 11/19/21 Procedure: Left Shoulder Injection Surgeon/Proceduralist/Physician: Fermin Hardwick Procedure Diagnosis: Left Glenohumeral Arthritis Procedure Indications: Ottoniel has had persistent pain of the LEFT shoulder. Noninvasive measures have been tried. To serve as both diagnostic and therapeutic, an injection under fluoroscopy was recommended. I had discussed the risks of the procedure and the patient elected to proceed. Procedure Description: Ottoniel was greeted in the flouroscopy room. The correct side was identified and the consent was reviewed with the patient and signed. The patient was then placed in the supine position on the fluoroscopy table. The LEFT shoulder was then prepped with Chloraprep. The anterior injection starting point was identiifed by bony landmarks and fluoroscopy. The skin and soft tissue in the tract of the injection was anesthetized with 1% Lidocaine. A spinal needle was then inserted deep into the shoulder joint at the level of the recess between the glenoid and superior humeral head. A small amount of Omnipaque solution was injected to confirm intraarticular placement. Once confirmed, the shoulder was injected with 4cc of 0.5% Bupivicaine and 80mg of Depo-Medrol. A bandaid was placed on the injection site. The patient tolerated the procedure well and noted improvement in pre-injection pain.
== END 2021-11-19 02:52 ==
LOC: DI 02:32
PROVIDERS: PCP Nurse Practitioner Family; Visit Provider Student in an Organized Health Care Education/Training Program
DX: M19.012 Primary osteoarthritis, left shoulder (principal); M75.22 Bicipital tendinitis, left shoulder; M25.512 Pain in left shoulder
CPT/HCPCS: 20610; 77002

== ENCOUNTER 2021-12-21 17:22 | Outpatient (REF) | payer BC, SELFPAY ==
[2021-12-21 20:21] LABS: Bilirubin Negative (Negative); Blood Moderate (Negative); Clarity Clear (Clear); Glucose Negative (Negative); Ketones Negative (Negative); Leukocyte Esterase Negative (Negative); Nitrite Negative (Negative); Specific Gravity >= 1.030 (1.005-1.025); Urobilinogen 0.2 EU/dL (Up TO 0.2)
[2021-12-21 20:27] LABS: Bacteria Negative HPF (Negative); C & S Indicated? No; Crystals Negative HPF (Negative); Epithelial Cells Negative HPF (Negative); Mucus Negative (Negative); RBC 0-2 HPF (0-2); WBC Negative HPF (0-5)
== END 2021-12-21 17:23 | disposition home or self-care (01) ==
LOC: LBN 17:22
PROVIDERS: PCP Nurse Practitioner Family; Visit Provider Nurse Practitioner Gerontology
DX: R31.29 Other microscopic hematuria (principal)
CPT/HCPCS: 81003; 81015

== ENCOUNTER 2022-02-22 14:51 | Outpatient (REF) | payer BC, SELFPAY ==
[2022-02-24 11:15] LABS: COVID-19 RT-PCR UVMMC Result Negative (Negative)
== END 2022-02-22 14:52 | disposition home or self-care (01) ==
LOC: LBN 14:51
PROVIDERS: PCP Nurse Practitioner Family; Visit Provider Nurse Practitioner
DX: Z20.822 Contact with and (suspected) exposure to COVID-19 (principal)
CPT/HCPCS: U0003

== ENCOUNTER 2022-07-22 00:25 | Outpatient (CLI) | payer BC, SELFPAY ==
--- NOTE | 2022-07-22 07:45 | DI.RAD_ITS ---
Exam(s) RF JOINT INJECTION FLUORO GUID EXAM: RF JOINT INJECTION FLUORO GUID CLINICAL HISTORY: LEFT SHOULDER inj under fluoro, arthritis lt glenohumeral joint,m19.012 TECHNIQUE: Fluoroscopy provided. Radiologist not present. CONTRAST MATERIAL: None COMPARISON: No exams were available for comparison FINDINGS: Fluoroscopy was provided for Dr. Hardwick during left shoulder injection. Please refer to the procedure report for complete details. Cumulative Dose: Ka,r=0.166 mGy IMPRESSION: RADIATION DOSE DELIVERED:
--- NOTE | 2022-07-22 14:37 | W.PROCNOTE ---
Date of service: 07/22/22 Time of Service: 14:38 Procedure Note Date of procedure: 07/22/22 Procedure: Left Shoulder Injection Surgeon/Proceduralist/Physician: Fermin Hardwick Procedure Diagnosis: Left Shoulder Arthritis Procedure Indications: Ottoniel has had persistent pain of the LEFT shoulder. Noninvasive measures have been tried. To serve as both diagnostic and therapeutic, an injection under fluoroscopy was recommended. I had discussed the risks of the procedure and the patient elected to proceed. Procedure Description: Ottoniel was greeted in the flouroscopy room. The correct side was identified and the consent was reviewed with the patient and signed. The patient was then placed in the supine position on the fluoroscopy table. The LEFT shoulder was then prepped with Chloraprep. The anterior injection starting point was identiifed by bony landmarks and fluoroscopy. The skin and soft tissue in the tract of the injection was anesthetized with 1% Lidocaine. A spinal needle was then inserted deep into the shoulder joint at the level of the recess between the glenoid and superior humeral head. A small amount of Omnipaque solution was injected to confirm intraarticular placement. Once confirmed, the shoulder was injected with 5cc of 0.5% Bupivicaine and 80mg of Depo-Medrol. A bandaid was placed on the injection site. The patient tolerated the procedure well and noted improvement in pre-injection pain.
[2022-07-22] MEDS: Bupivacaine 0.5% Pres-Free 10 ML VIAL 6 ML IJ (14:47)
[2022-07-22] MEDS: methylPREDNISolone ACETATE 80 MG/ML VIAL IM (14:47)
== END 2022-07-22 00:45 ==
LOC: DI 00:25
PROVIDERS: PCP Nurse Practitioner Family; Visit Provider Student in an Organized Health Care Education/Training Program
DX: M19.012 Primary osteoarthritis, left shoulder (principal)
CPT/HCPCS: 20610; 77002; J1040

== ENCOUNTER 2022-10-01 01:13 | Outpatient (CLI) | payer BC, SELFPAY ==
[2022-10-01 08:13] LABS: Abs Immature Grans 0.03 10^3/uL (0.0-0.06); Absolute Basophil Count 0.06 10^3/uL (0.0-0.2); Absolute Eosinophil Count 0.11 10^3/uL (0.0-0.7); Absolute Lymphocyte Count 2.48 10^3/uL (1.2-3.4); Absolute Monocyte Count 0.79 10^3/uL (0.1-0.8); Absolute Neutrophil Count 3.68 10^3/uL (1.2-6.7); Basophils % 0.8; Eosinophils % 1.5; HCT 43.1 % (40.0-50.0); HGB 14.9 g/dL (13.5-17.5); Immature Grans % 0.4; Lymphocytes % 34.7; MCH 31.8 pg (27.0-33.0); MCHC 34.6 % (32.0-36.0); MCV 92 fL (80-95); MPV 8.6 fL (8.0-11.0); Neutrophils % 51.6; Platelet Count 304 10^3/uL (130-400); RBC 4.69 10^6/uL (4.36-5.78); RDW 13.4 % (11.8-14.1); RDW-SD 45.7 fL; WBC 7.15 10^3/uL (4.4-10.8)
[2022-10-01 08:36] LABS: Hemoglobin A1C 5.4 % (<5.7)
[2022-10-01 10:09] LABS: ALT 21 U/L (16-63); AST 16 U/L (15-37); Albumin 4.1 g/dL (3.4-5.0); Alkaline Phosphatase 51 U/L (46-116); Anion Gap 7.8 mmol/L (3-11); BUN 11 mg/dL (7-18); Bilirubin, Total 0.5 mg/dL (0.2-1.0); CO2 28.2 mmol/L (21.0-32.0); CREATININE 1.1 mg/dL (0.70-1.30); Calculated LDL 84 mg/dL (<100); Chloride 100 mmol/L (98-107); Cholesterol 186 mg/dL (<200); Glucose 120 mg/dL (74-106); HDL Cholesterol 95 mg/dL (40-60); Potassium 4.8 mmol/L (3.5-5.1); Sodium 136 mmol/L (136-145); Total Protein 7.5 g/dL (6.4-8.2); Triglyceride 37 mg/dL (<150)
== END 2022-10-01 01:14 | disposition home or self-care (01) ==
LOC: LBO 01:14
PROVIDERS: PCP Nurse Practitioner Family; Referring Provider Nurse Practitioner Family; Visit Provider Nurse Practitioner Family
DX: R73.01 Impaired fasting glucose (principal); I10 Essential (primary) hypertension; E78.5 Hyperlipidemia, unspecified; Z51.81 Encounter for therapeutic drug level monitoring
CPT/HCPCS: 36415; 80053; 80061; 83036; 85025

== ENCOUNTER 2022-11-17 12:56 | Outpatient (REF) | payer BC, SELFPAY ==
[2022-11-17 13:05] LABS: Bilirubin Negative (Negative); Blood Moderate (Negative); Clarity Clear (Clear); Glucose Negative (Negative); Ketones 15 mg/dL (Negative); Leukocyte Esterase Negative (Negative); Nitrite Negative (Negative); Urobilinogen 0.2 mg/dL (Up to 0.2)
[2022-11-17 13:17] LABS: WBC 0-2 HPF (0-5)
[2022-11-17 13:18] LABS: Bacteria Rare HPF (Negative); C & S Indicated? No; Casts Negative LPF (Negative); Crystals Negative HPF (Negative); Epithelial Cells Rare HPF (Negative); Mucus Negative (Negative)
== END 2022-11-17 12:57 | disposition home or self-care (01) ==
LOC: LBN 12:56
PROVIDERS: PCP Nurse Practitioner Family; Visit Provider Nurse Practitioner Gerontology
DX: R31.29 Other microscopic hematuria (principal)
CPT/HCPCS: 81003; 81015

== ENCOUNTER 2022-11-24 01:40 | Outpatient (CLI) | payer BC, SELFPAY ==
--- NOTE | 2022-11-24 07:33 | DI.RAD_ITS ---
Exam(s) RF JOINT INJ. FLUORO GUID RAD EXAM: RF JOINT INJ. FLUORO GUID RAD CLINICAL HISTORY: L SHOULDER PAIN, TENDINITIS LONG HEAD BICEPS BRACHII, ARTHRITIS, M75.22, M1. The Patient has had persistent left shoulder pain. Noninvasive measures have been tried. To serve as gurinder th diagnostic and therapeutic, an injection under fluoroscopy was recommended. The risks of the proc edure were discussed with their Orthopedic provider and the patient elected to proceed. TECHNIQUE: 2D and realtime digital imaging was performed. CONTRAST MATERIAL: Water soluble contrast was utilized. COMPARISON: No exams were available for comparison FINDINGS: The Patient was greeted in the fluoroscopy room. The correct side was identified and the consent was reviewed with the patient and was signed. The patient was properly positioned on the fluoroscopy ta ble. The left shoulderwas then prepped with Chloraprep and draped. The left shoulder injection star ting point was identified by the bony landmarks and fluoroscopy. The skin and soft tissue in the tra ct of the injection was anesthetized with 1% Lidocaine. A spinal needle was then inserted into the l eftshoulder joint under fluoroscopic guidance. A small amount of Omnipaque solution was injected to confirm intraarticular placement. Once confirmed, the leftshoulder was injected with 5cc of a soluti on containing 0.5% Bupivaine and 80 mg of Depo-Medrol. A bandaid was placed on the injection site. The patient tolerated the procedure well and left the department in good condition. IMPRESSION: Successful left shoulder injection. RADIATION DOSE DELIVERED: Ka,r=3 mGy
[2022-11-24 09:03] LABS: CREATININE 0.9 mg/dL (0.70-1.30); Estimated GFR 96.57 (mL/min/1.73m2)
[2022-11-24] MEDS: Normal Saline - Diluent 50 ML VIAL IJ (10:23)
[2022-11-24] MEDS: Bupivacaine 0.5% Pres-Free 10 ML VIAL IJ (10:25)
[2022-11-24] MEDS: Omnipaque 300 MG/ML 10 ML BTL IJ (10:25)
[2022-11-24] MEDS: methylPREDNISolone ACETATE 80 MG/ML VIAL IM (10:25)
== END 2022-11-24 02:00 ==
LOC: DI 01:40
PROVIDERS: Nurse Practitioner Gerontology; PCP Nurse Practitioner Family; Visit Provider Student in an Organized Health Care Education/Training Program
DX: R31.9 Hematuria, unspecified (principal); M19.012 Primary osteoarthritis, left shoulder; M75.22 Bicipital tendinitis, left shoulder
CPT/HCPCS: 20610; 77001; 82565; J1040

== ENCOUNTER 2022-12-04 17:07 | Emergency (ER) | payer BC, SELFPAY ==
[2022-12-04 17:11] VITALS: BP 172/93; PULSE 89; RESP 16; TEMP 37; O2SAT 99
[2022-12-04] MEDS: amLODIPine 5 MG TAB 10 MG PO (18:43)
--- NOTE | 2022-12-04 19:13 | W.ED.GENAD ---
Discharge Plan Disposition Patient Disposition: Home Discharge Details Clinical Impression: Hypertension, Chronic neck pain, Headache Primary Care Provider: Patria Chi ED Provider: Akira Herring Home Meds and New Rx's Prescriptions: Continued nicotine 21-14-7 mg/24 hr patch, TD daily, sequential See Rx Instructions transdermal .COMPLEX Qty: 56 0RF Rx Instructions: apply 1-21 mg NICOTINE PATCH daily for 28 days; follow with 1-14 mg PATCH daily for 14 days, then 1-7mg PATCH daily for 14 days transdermal nicotine (polacrilex) 4 mg lozenge 4 mg buccal Q6H PRN (Reason: nicotine cravings) Qty: 72 1RF Rx Instructions: Trial while decreasing smkg (Bronchitis) albuterol sulfate 90 mcg/actuation HFA aerosol inhaler 2 puff inhalation QID PRN (Reason: shortness of breath or wheezing) Patient Comments: Please use 2/day x 1 week. Rx Instructions: Dispense brand best covered under insurance terazosin 1 mg capsule 1 mg PO QHS Qty: 90 3RF multivitamin [Once Daily] 1 EACH tablet 1 ea PO DAILY aspirin [Lo-Dose Aspirin] 81 MG tablet,delayed release (DR/EC) 81 mg PO DAILY atorvastatin 10 mg tablet 10 mg PO DAILY Qty: 90 3RF metoprolol succinate 50 mg tablet extended release 24 hr 75 mg PO DAILY Qty: 135 3RF amlodipine 5 mg tablet 5 mg PO DAILY Qty: 90 3RF Discharge Instructions Instructions: Hypertension (ED) Additional Instructions: At this time no emergent findings were noted on your work-up. Please resume your amlodipine and continue to monitor blood pressure. Return for any new or significant worsening symptoms otherwise follow-up your primary care provider preferably in the next week for recheck of your symptoms and pressure. Referrals: Patria Chi, MICHAEL [Primary Care Provider] - Medical Decision Making Patient presenting the emergency department for chief complaint of hypertension. He states that over the past couple months he has not been feeling well which has worsened over the last couple days. He has noticed that his blood pressure being elevated. He has been off his amlodipine due to running out and not refilling it. Patient denies any focal neurological findings. Physical exam is unremarkable with no findings. Patient is hypertensive 172/93. Initially discussed with patient giving him his amlodipine and monitoring symptoms versus full work-up. We will give medication and monitor after shared decision-making was utilized and decided to start with more conservative management. I do not feel that patient symptoms are consistent with any endorgan damage from hypertension. We will give patient 10 mg of amlodipine and monitor Patient had improvement of blood pressure with reading of 147/97. While blood pressure did improve he still stated significant head pressure patient with no focal findings. Given that patient is still symptomatic in spite of reduction of his blood pressure we will proceed with full work-up. Labs reviewed and CBC is overall nondiagnostic, CMP shows slightly low sodium otherwise unremarkable CMP, TSH within normal range and salicylates were checked because patient states daily use of aspirin for neck pain which was nontoxic. CTA brain and neck was reviewed and shows some sinusitis and degenerative changes in the neck otherwise no acute intracranial findings or severe carotid findings except for mild atherosclerosis. Patient's blood pressure continue to improve so we will discharge patient with represcribing his amlodipine and have patient follow-up with primary care provider in 1 week for recheck of blood pressure and symptoms. After discussion of diagnosis and plan of care patient has no further needs, questions, or concerns and states clear understanding to return to the emergency department for any worsening symptoms. This documentation was generated using [employer] dictation system, please disregard any oddities of phrase or misspellings. Imaging Data Radiologic Study: Imaging: CT Scan Radiologist's impression: Exam(s) PROCEDURE INFORMATION: Exam: CTA Head Without And With Contrast, Arteriography Exam date and time: 12/04/2022 9:04 PM Age: 62 years old Clinical indication: Pain; Headache TECHNIQUE: Imaging protocol: Computed tomographic angiography of the head without and with contrast. Exam focused on the arteries. 3D rendering (Not supervised by radiologist): MIP and/or 3D reconstructed images were created by the technologist. Contrast material: OMNIPAQUE 350; Contrast volume: 85 ml; Contrast route: INTRAVENOUS (IV); COMPARISON: MRI - BRAIN WO CONTRAST 11/21/2017 4:25 PM FINDINGS: ANTERIOR CIRCULATION: Right internal carotid artery: Calcification of the cavernous and intradural right internal carotid artery with mild vessel stenosis. No aneurysm or dissection. Right middle cerebral artery: No occlusion or significant stenosis. No aneurysm. Right anterior cerebral artery: No occlusion or significant stenosis. No aneurysm. Left internal carotid artery: Calcified plaque of the cavernous left internal carotid artery without significant vessel stenosis. No aneurysm or dissection. Left middle cerebral artery: No occlusion or significant stenosis. No aneurysm. Left anterior cerebral artery: No occlusion or significant stenosis. No aneurysm. POSTERIOR CIRCULATION: Right vertebral artery: No occlusion or significant stenosis. No aneurysm. Left vertebral artery: No occlusion or significant stenosis. No aneurysm. Basilar artery: No occlusion or significant stenosis. No aneurysm. Right posterior cerebral artery: No occlusion or significant stenosis. No aneurysm. Left posterior cerebral artery: No occlusion or significant stenosis. No aneurysm. Veins: No evidence of venous sinus thrombosis. HEAD: Brain: Normal. No hemorrhage. Unremarkable white matter. No mass effect. Cerebral ventricles: Normal. No ventriculomegaly. Bones/joints: Unremarkable. No acute fracture. Paranasal sinuses: Partial opacification of the left maxillary sinus with frothy secretions. Mastoid air cells: Visualized mastoids are normal. No mastoid effusion. Soft tissues: Unremarkable. IMPRESSION: 1. No large vessel occlusion. 2. Partial opacification of the left maxillary sinus may be related to infectious or inflammatory change. PROCEDURE INFORMATION: Exam: CTA Neck With Contrast Exam date and time: 12/04/2022 9:04 PM Age: 62 years old Clinical indication: Pain; Headache TECHNIQUE: Imaging protocol: Computed tomographic angiography of the neck with contrast. 3D rendering (Not supervised by radiologist): MIP and/or 3D reconstructed images were created by the technologist. Contrast material: OMNIPAQUE 350; Contrast volume: 85 ml; Contrast route: INTRAVENOUS (IV); COMPARISON: CT CHEST LUNG CANCER SCREEN 10/18/2022 7:57 AM FINDINGS: Right common carotid artery: Mild calcification of the right common carotid artery without significant stenosis. No aneurysm or dissection. Right internal carotid artery: No stenosis at the right internal carotid artery origin (0% by NASCET criteria). Significant distal vessel tortuosity without kinking. No aneurysm or dissection. Right external carotid artery: Calcified plaque at the right external carotid artery origin with mild stenosis. Left common carotid artery: No stenosis. No dissection or occlusion. Left internal carotid artery: No significant stenosis at the left internal carotid artery origin (0% by NASCET criteria). Significant distal vessel tortuosity without kinking. No aneurysm or dissection. Left external carotid artery: No occlusion or stenosis of the origin. Right vertebral artery: The right vertebral artery is dominant, a normal variant. Moderate tortuosity. No aneurysm or dissection. Left vertebral artery: Moderate tortuosity of the left vertebral artery without aneurysm or dissection. Aorta: Minimal calcification at the aortic arch and great vessel origins. Soft tissues: Normal. No significant soft tissue swelling. Bones/joints: Diffuse degenerative changes of the visualized cervicothoracic spine, with grade 1 anterolisthesis of C3 and retrolisthesis of C4 resulting in likely moderate spinal canal stenosis at C4-C5. IMPRESSION: 1. Mild atherosclerosis of the neck without significant vessel stenosis. 2. Diffuse degenerative changes of the spine, with likely moderate spinal canal stenosis at C4-C5. Lab Data Lab results reviewed: Yes I reviewed the patient's lab results. HPI General Mode of arrival: ambulatory. Date/Time Provider Initiated Documentation: 12/04/22 17:13. Limitations to Documentation: no limitations. Information obtained by: patient, family and RN notes reviewed. History of Present Illness 62 year old M presents to the emergency department with the chief complaint of Elevated blood pressure reading, feeling off, Patient started experiencing this week(s) (3) and it has been constant. No relieving factors improve symptom(s), Medication worsens symptoms (Ran out of amlodipine) and Other factors that worsen symptoms (Situational stress) . Patient did receive the following treatments prior to arrival, none Related Data Home Medications Medication Instructions Recorded Confirmed aspirin 81 mg tablet,delayed 81 mg PO DAILY 08/21/12 11/30/22 release (Lo-Dose Aspirin) multivitamin (Once Daily tablet) 1 ea PO DAILY 08/21/12 11/30/22 atorvastatin 10 mg tablet 10 mg PO DAILY #90 tab-caps 08/29/20 11/30/22 albuterol sulfate 90 mcg/actuation 2 puff inhalation QID PRN 01/23/21 11/30/22 aerosol inhaler shortness of breath or wheezing nicotine (polacrilex) 4 mg buccal 4 mg buccal Q6H PRN nicotine 01/23/21 11/30/22 lozenge cravings #72 ea nicotine See Rx Instructions transdermal 01/23/21 11/30/22 21mg/24hr-14mg/24hr-7mg/24hr daily .COMPLEX #56 patches transderm patches,sequentl metoprolol succinate 50 mg 75 mg PO DAILY #135 tab-caps 06/16/22 11/30/22 tablet,extended release 24 hr terazosin 1 mg capsule 1 mg PO QHS #90 tab-caps 11/17/22 11/30/22 amlodipine 5 mg tablet 5 mg PO DAILY #90 tab-caps 12/04/22 Previous Rx's Medication Instructions Recorded atorvastatin 10 mg tablet 10 mg PO DAILY #90 tab-caps 08/29/20 nicotine (polacrilex) 4 mg buccal 4 mg buccal Q6H PRN nicotine 01/23/21 lozenge cravings #72 ea nicotine See Rx Instructions transdermal 01/23/21 21mg/24hr-14mg/24hr-7mg/24hr daily .COMPLEX #56 patches transderm patches,sequentl metoprolol succinate 50 mg 75 mg PO DAILY #135 tab-caps 06/16/22 tablet,extended release 24 hr terazosin 1 mg capsule 1 mg PO QHS #90 tab-caps 11/17/22 amlodipine 5 mg tablet 5 mg PO DAILY #90 tab-caps 12/04/22 Allergies Allergy/AdvReac Type Severity Reaction Status Date / Time bupropion HCl AdvReac Intermediate heart Verified 10/08/22 08:13 [From Wellbutrin] pounding General Stated Complaint: GenMedical SHARDA: 3 Review of Systems Constitutional Constitutional: Denies headache(s), Reports malaise and Denies weakness Eyes Eyes: Denies change in vision and Denies loss of vision ENT Ears, Nose, Mouth, and Throat: Denies headache(s) and Reports neck pain (Chronic with no recent change) Cardiovascular Cardiovascular: Reports as per HPI, Denies chest pain, Denies syncope, Denies lightheadedness, Denies dyspnea and Denies dyspnea on exertion Respiratory Respiratory: Denies dyspnea and Denies dyspnea on exertion Gastrointestinal Gastrointestinal: Denies abdominal pain, Denies nausea and Denies vomiting Musculoskeletal Musculoskeletal: Reports neck pain (Chronic with no recent change) Neurologic Neurologic: Denies abnormal movements, Denies confusion, Denies syncope, Denies headache(s), Denies lack of coordination, Denies localized weakness, Denies loss of vision, Denies memory loss, Denies paresthesias and Denies weakness Psychiatric Psychiatric: Reports abnormal sleep pattern, Reports anxiety, Denies confusion, Reports depression and Denies memory loss PFSH All Active Problems (Updated 12/04/22 @ 22:59 by Akira Herring NP) Hypertension (Chronic) Chronic neck pain (Acute) Tendinitis of long head of biceps brachii of left shoulder (Acute) Arthritis of left glenohumeral joint (Acute) Intra-articular injection: 11/19/2021, 07/22/2022 Impaired fasting glucose (Chronic 08/20/11) Alcohol use disorder (Chronic) Osteoarthritis of lumbar spine (Chronic) Tobacco use disorder (Chronic 10/19/11) Osteoarthritis of cervical spine (Chronic 03/25/16) Cervical MRI 03/2016 [facility] [place]: Mild degenerative disc disease and facet arthropathy of the cervical spine with multilevel neural foramen narrowing Microscopic hematuria (Chronic 08/20/11) NEG work-up [address] Aldo Leblanc (cystoscopy, Abd CT & Abd x-ray) 12/[address] Torres: CT urogram showing (L) kidney nonobstructing stone, normal cystoscopy Annual UA, repeat workup 3-5 years if persistent Hyperlipidemia (Chronic 08/20/11) 08/2020 labs: adequate response to moderate statin, continue Headache (Chronic 08/20/11) Had been getting tramadol Rx 10/month --> [facility] [place] Neuro consult 01/2016 --> NEG brain MRI --> gabapentin Essential hypertension (Chronic 08/20/11) Goal BP </=140/90 Depression (Chronic 03/07/15) Wellbutrin d/c'ed 03/2015 due to side effects. Sertaline d/c'ed 04/2015 due to side effects. Fluoxetine d/c'ed 06/2015 due to side effects. Trazodone d/c'ed 03/2016 due to side effects. BPH (benign prostatic hyperplasia) (Chronic 11/02/17) Medical History Adenomatous polyps Colon polyp, hyperplastic Diverticulosis GERD (gastroesophageal reflux disease) (11/19/14) Herpes zoster (11/26/14) Hyponatremia Hospitalization 11/2017; 2/2 EtOH, dehydration, and medication Positive self-administered antigen test for COVID-19 (~10/01/22) Provoked seizure (12/22/17) 11/2017 hospitalization; 2/2 EtOH, dehydration, and medication Subclinical hypothyroidism (04/19/17) Tubular adenoma (09/15/11) 2012 & 2014 colonoscopies +FH colorectal CA ([facility]) Surgical History blood vessel removed L side chest Colonoscopy - IV Sedation (09/05/11) w/ BX Colonoscopy - IV Sedation (12/27/14) w/ BX Cystoscopy (12/29/17) Microscopic hematuria, no pathology found. Dr. Torres History of colonoscopy with polypectomy (~06/13/20) nerve block cervical/thoracic-[facility] [place] [facility] Clinic for cervical spondylosis without myelopathy Family History Mother Diabetes Dementia Alcohol abuse Hypertension Heart disease Father , Stomach & lung CA Diabetes Cancer Hypertension Heart disease Sister Essential hypertension Diabetes Hypertension Grandfather No problems noted. Grandfather No problems noted. Sister Hypertension Maternal Grandfather Alcohol abuse Paternal Grandfather Colon cancer Social History Smoking/Tobacco Use Status: Current every day Tobacco Type: cigarettes Smoking packs per day: 0.75 Smoking cigarettes per day: 15.0 Years smoked: 44 Smoking pack-years: 33.00 Tobacco: How many years used: 46 Quit status: considering quitting (Has cut back some) Smoking risk assessment performed?: Yes Alcohol Intake: current Alcohol Intake frequency: 3 or more drinks per day Alcohol type: beer Drug use: Never Substance use type: does not use Adopted: No Caregiver/Support person: No Foster care: No Housing: house Communication Needs: None Do you need help understanding health information?: Rarely 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 Pets and animals: No Sexually active: No Do you think of yourself as: bisexual Current gender identity: male What is your relationship status?: never How often do you talk on the phone with friends or family?: three or more times per week How often do you get together with friends or relatives?: once per week Panel score (0-1 are the most socially isolated patients): 1 Rachel/Cheondoism: Rastafarian Seatbelt use: always Helmet use: No Drive intox or ride w/intox new car driver: No Do you feel safe at home: Yes Additional Social history: lives alone Exam Const General: cooperative, healthy appearing, comfortable, no acute distress, not diaphoretic and not ill appearing Nutritional Appearance: average body habitus Orientation: alert, awake and oriented x3 Limitations: mental status not altered Neck Neck: normal visual inspection, full ROM, trachea midline, supple and no anterior neck swelling Thyroid: thyroid normal Carotids: normal carotid upstroke and no bruits Chest Chest: normal inspection of the chest Resp Effort & Inspection: normal respiratory effort and able to speak in complete sentences Auscultation: clear to auscultation bilaterally Cardio Jugular venous pressure: no JVD Palpation: normal PMI Rate: regular rate Rhythm: regular rhythm Heart Sounds: S1 normal, S2 normal, no click, no gallops, no murmurs and no rubs Bruits: no abdominal aortic bruits and no carotid bruits Pulses: radial pulses present bilaterally 2+ Skin General skin exam: no rashes or lesions noted Neuro General: patient alert, patient awake, patient oriented x3, gait normal, tone normal, moves all extremities, no meningeal signs, no focal motor deficits, CN's II-XI intact bilaterally, not confused and not obtunded Cognition: normal cognition Speech: speech normal Gait: normal gait Course Vital Signs Vital signs: Vital Signs Temperature 37.0 C 12/04/22 17:11 Pulse 89 12/04/22 17:11 Respiratory Rate 16 12/04/22 17:11 Blood Pressure 172/93 H 12/04/22 17:11 Pulse Oximetry 99 12/04/22 17:11 Temperature 37.0 C 12/04/22 17:11 Temperature Source Skin 12/04/22 17:11 Pulse 89 12/04/22 17:11 Respiratory Rate 16 12/04/22 17:11 Respiratory Effort Normal 12/04/22 17:13 Blood Pressure 172/93 H 12/04/22 17:11 Blood Pressure Position Sitting 12/04/22 17:11 Pulse Oximetry 99 12/04/22 17:11 Oxygen Delivery Method Room Air 12/04/22 17:11 Oxygen Flow Rate 0 12/04/22 17:11
--- NOTE | 2022-12-04 19:45 | DI.CT_ITS ---
Exam(s) CT BRAIN NECK CTA EXAM: CT BRAIN NECK CTA CLINICAL HISTORY: headache. TECHNIQUE: Imaging Protocol: Axial CT angiography was performed with multi-slice acquisition and mu lti-planar and/or 3D reconstructions. CONTRAST MATERIAL: Intravenous: Omnipaque 350 contrast volume:85 mL COMPARISON: CT HEAD WITHOUT CONTRAST from 11/20/2017 FINDINGS: CT Head W/O and W: Ventricles and Extra axial spaces: Normal in size and morphology for the patient's age. Hemorrhage: None. Cerebral parenchyma: There is no evidence of an acute territorial infarct. Midline shift: None. Brainstem/Cerebellum: Normal. Calvarium: Normal. Visualized Paranasal sinuses/Mastoids: There is a fluid level in the left maxillary sinus. The remai rainer visualized paranasal sinuses and mastoid air cells are clear. Soft Tissues: Unremarkable. Enhancement: Unremarkable. CTA Neck W: Common Carotid: Right: No dissection, occlusion or significant stenosis. Mild atherosclerosis. Left: No dissection, occlusion or significant stenosis. Mild atherosclerosis distally. External Carotid: Right: No occlusion or significant stenosis. Mild atherosclerosis at the origin. Left: No occlusion or significant stenosis. Internal Carotid: Right: No dissection, occlusion or significant stenosis. Tortuosity of the right internal carotid ar marizol. Left: No dissection, occlusion or significant stenosis. There is tortuosity of the left internal ca rotid artery. Mild atherosclerosis at the origin. Vertebral Artery: Right: No dissection, occlusion or significant stenosis. Left: No dissection, occlusion or significant stenosis. Lung Apices: Normal. Bones: Within normal limits for the patient's age. There is retrolisthesis of C4 on C5 and mild anter olisthesis of C3 through C4. Soft Tissues: Normal. Thyroid gland: Unremarkable. CTA Brain W: Internal Carotid Arteries: Mild atherosclerosis. No evidence of occlusion, aneurysm or significant s tenosis. Anterior Cerebral Arteries: Right: No aneurysm, occlusion or significant stenosis. Left: No aneurysm, occlusion or significant stenosis. Middle Cerebral Arteries: Right: No aneurysm, occlusion or significant stenosis. Left: No aneurysm, occlusion or significant stenosis. Posterior Cerebral Arteries: Right: No aneurysm, occlusion or significant stenosis. Left: No aneurysm, occlusion or significant stenosis. Vertebral Arteries: Right: No aneurysm, occlusion or significant stenosis. Left: No aneurysm, occlusion or significant stenosis. Basilar Artery: No aneurysm, occlusion or significant stenosis. IMPRESSION: 1. No large vessel occlusion or significant stenosis on the CT angiography of the head. 2. No acute intracranial process. 3. Fluid in the left maxillary sinus which may represent acute or inflammatory sinusitis. Please cor relate clinically. 4. No occlusion or significant stenosis on the CT angiography of the neck. RADIATION DOSE DELIVERED: 2,662.48mGy.cm Total DLP DATA REPOSITORY: All CT scans at this facility are submitted to the National Radiology Data Registry (NRDR) Dose Index Registry (DIR) with the [employer] (ACR). RADIATION OPTIMIZATION: All CT scans at this facility use at least one of these dose optimization te chniques: automated exposure control; mA and/or kV adjustment per patient size (includes targeted exa ms where dose is matched to clinical indication); or iterative reconstruction.
[2022-12-04 20:28] LABS: Abs Immature Grans 0.03 10^3/uL (0.0-0.06); Absolute Basophil Count 0.05 10^3/uL (0.0-0.2); Absolute Eosinophil Count 0.18 10^3/uL (0.0-0.7); Absolute Lymphocyte Count 3.08 10^3/uL (1.2-3.4); Absolute Monocyte Count 0.84 10^3/uL (0.1-0.8); Absolute Neutrophil Count 4.28 10^3/uL (1.2-6.7); Basophils % 0.6; Eosinophils % 2.1; HCT 40.1 % (40.0-50.0); Immature Grans % 0.4; Lymphocytes % 36.4; MCH 31.5 pg (27.0-33.0); MCHC 34.9 % (32.0-36.0); MCV 90 fL (80-95); MPV 8.7 fL (8.0-11.0); Monocytes % 9.9; Neutrophils % 50.6; Platelet Count 278 10^3/uL (130-400); RBC 4.45 10^6/uL (4.36-5.78); RDW 13.3 % (11.8-14.1); RDW-SD 43.8 fL; WBC 8.46 10^3/uL (4.4-10.8)
[2022-12-04 20:42] VITALS: BP 152/76; PULSE 65; RESP 16; O2SAT 97
[2022-12-04 20:44] LABS: Salicylate 10.4 mg/dL (<2.8)
[2022-12-04 20:54] LABS: ALT 20 U/L (16-63); AST 18 U/L (15-37); Albumin 3.8 g/dL (3.4-5.0); Alkaline Phosphatase 46 U/L (46-116); BUN 8 mg/dL (7-18); Bilirubin, Total 0.4 mg/dL (0.2-1.0); CREATININE 0.9 mg/dL (0.70-1.30); Calcium 8.6 mg/dL (8.5-10.1); Chloride 99 mmol/L (98-107); Estimated GFR 96.57 (mL/min/1.73m2); Glucose 88 mg/dL (74-106); Magnesium 2.3 mg/dL (1.8-2.4); Potassium 4.1 mmol/L (3.5-5.1); Sodium 135 mmol/L (136-145); TSH (W/Ref FT4) 3.27 uIU/mL (0.36-3.74); Total Protein 6.9 g/dL (6.4-8.2)
[2022-12-04] MEDS: Normal Saline - Diluent 50 ML VIAL IJ (21:04)
[2022-12-04] MEDS: Omnipaque 350 MG/ML 100 ML BTL IJ (21:05)
--- NOTE | 2022-12-04 22:10 | DI.VRAD_ITS ---
PROCEDURE INFORMATION: Exam: CTA Head Without And With Contrast, Arteriography Exam date and time: 12/04/2022 9:04 PM Age: 62 years old Clinical indication: Pain; Headache TECHNIQUE: Imaging protocol: Computed tomographic angiography of the head without and with contrast. Exam focused on the arteries. 3D rendering (Not supervised by radiologist): MIP and/or 3D reconstructed images were created by the technologist. Contrast material: OMNIPAQUE 350; Contrast volume: 85 ml; Contrast route: INTRAVENOUS (IV); COMPARISON: MRI - BRAIN WO CONTRAST 11/21/2017 4:25 PM FINDINGS: ANTERIOR CIRCULATION: Right internal carotid artery: Calcification of the cavernous and intradural right internal carotid artery with mild vessel stenosis. No aneurysm or dissection. Right middle cerebral artery: No occlusion or significant stenosis. No aneurysm. Right anterior cerebral artery: No occlusion or significant stenosis. No aneurysm. Left internal carotid artery: Calcified plaque of the cavernous left internal carotid artery without significant vessel stenosis. No aneurysm or dissection. Left middle cerebral artery: No occlusion or significant stenosis. No aneurysm. Left anterior cerebral artery: No occlusion or significant stenosis. No aneurysm. POSTERIOR CIRCULATION: Right vertebral artery: No occlusion or significant stenosis. No aneurysm. Left vertebral artery: No occlusion or significant stenosis. No aneurysm. Basilar artery: No occlusion or significant stenosis. No aneurysm. Right posterior cerebral artery: No occlusion or significant stenosis. No aneurysm. Left posterior cerebral artery: No occlusion or significant stenosis. No aneurysm. Veins: No evidence of venous sinus thrombosis. HEAD: Brain: Normal. No hemorrhage. Unremarkable white matter. No mass effect. Cerebral ventricles: Normal. No ventriculomegaly. Bones/joints: Unremarkable. No acute fracture. Paranasal sinuses: Partial opacification of the left maxillary sinus with frothy secretions. Mastoid air cells: Visualized mastoids are normal. No mastoid effusion. Soft tissues: Unremarkable. IMPRESSION: 1. No large vessel occlusion. 2. Partial opacification of the left maxillary sinus may be related to infectious or inflammatory change. PROCEDURE INFORMATION: Exam: CTA Neck With Contrast Exam date and time: 12/04/2022 9:04 PM Age: 62 years old Clinical indication: Pain; Headache TECHNIQUE: Imaging protocol: Computed tomographic angiography of the neck with contrast. 3D rendering (Not supervised by radiologist): MIP and/or 3D reconstructed images were created by the technologist. Contrast material: OMNIPAQUE 350; Contrast volume: 85 ml; Contrast route: INTRAVENOUS (IV); COMPARISON: CT CHEST LUNG CANCER SCREEN 10/18/2022 7:57 AM FINDINGS: Right common carotid artery: Mild calcification of the right common carotid artery without significant stenosis. No aneurysm or dissection. Right internal carotid artery: No stenosis at the right internal carotid artery origin (0% by NASCET criteria). Significant distal vessel tortuosity without kinking. No aneurysm or dissection. Right external carotid artery: Calcified plaque at the right external carotid artery origin with mild stenosis. Left common carotid artery: No stenosis. No dissection or occlusion. Left internal carotid artery: No significant stenosis at the left internal carotid artery origin (0% by NASCET criteria). Significant distal vessel tortuosity without kinking. No aneurysm or dissection. Left external carotid artery: No occlusion or stenosis of the origin. Right vertebral artery: The right vertebral artery is dominant, a normal variant. Moderate tortuosity. No aneurysm or dissection. Left vertebral artery: Moderate tortuosity of the left vertebral artery without aneurysm or dissection. Aorta: Minimal calcification at the aortic arch and great vessel origins. Soft tissues: Normal. No significant soft tissue swelling. Bones/joints: Diffuse degenerative changes of the visualized cervicothoracic spine, with grade 1 anterolisthesis of C3 and retrolisthesis of C4 resulting in likely moderate spinal canal stenosis at C4-C5. IMPRESSION: 1. Mild atherosclerosis of the neck without significant vessel stenosis. 2. Diffuse degenerative changes of the spine, with likely moderate spinal canal stenosis at C4-C5. REFERENCES: NASCET CRITERIA. The degree of stenosis in the cervical segment of the internal carotid artery is based on NASCET criteria. Normal is no stenosis. Mild is less than 50% stenosis. Moderate is 50-69% stenosis. Severe is 70% to 99% stenosis. Total occlusion is no detectable patent lumen. Dictated and Authenticated by: Jacob Heaton MD. Ordering:YOLIS Champion MD
[2022-12-04 23:24] VITALS: BP 147/85; PULSE 72; RESP 16; TEMP 36.8; O2SAT 98
--- NOTE | 2022-12-05 01:10 | NUR.NOTE ---
Referral faxed to [facility] to f/u in a week for a blood pressure recheck and headache.Nursing Note:
== END 2022-12-04 23:26 | disposition home or self-care (01) ==
PROVIDERS: Emergency Provider Nurse Practitioner Family; PCP Nurse Practitioner Family
DX: I10 Essential (primary) hypertension (principal); M54.2 Cervicalgia; R51.9 Headache, unspecified
CPT/HCPCS: 36415; 70496; 70498; 80053; 99285; 80329; 83735; 84443; 85025; 99283; J3490

== ENCOUNTER 2023-03-23 11:24 | Outpatient (CLI) | payer MEDICAID, SELFPAY ==
--- NOTE | 2023-03-23 10:00 | DI.RAD_ITS ---
Exam(s) XR SHOULDER RT COMPLETE 2+V EXAM: XR SHOULDER RT COMPLETE 2+V CLINICAL HISTORY: RIGHT SHOULDER PAIN. TECHNIQUE: 2D digital imaging was performed of the right shoulder. Two images were obtained. Axill olive and Grashey views were obtained. COMPARISON: No exams were available for comparison FINDINGS: BONES: No acute fracture is present. No bony destructive lesion is seen. JOINTS: No dislocation present. Degenerative changes are seen at both the glenohumeral and acromiocla vicular joints. Old well corticated osseous densities are seen adjacent to the AC joint. SOFT TISSUE: The visualized lungs are clear. IMPRESSION: Degenerative changes of the right shoulder as described. DATA REPOSITORY: RADIATION DOSE DELIVERED:
== END 2023-03-23 11:25 | disposition home or self-care (01) ==
LOC: DIORS 11:24
PROVIDERS: PCP Nurse Practitioner Family; Visit Provider Student in an Organized Health Care Education/Training Program
DX: M19.011 Primary osteoarthritis, right shoulder (principal)
CPT/HCPCS: 73030

== ENCOUNTER → 2023-05-26 01:57 | Outpatient (CLI) | payer MEDICAID, SELFPAY ==
--- NOTE | 2023-05-26 13:56 | DI.RAD_ITS ---
Exam(s) RF JOINT INJ. FLUORO GUID RAD EXAM: RF JOINT INJ. FLUORO GUID RAD CLINICAL HISTORY: R SHOULDER PAIN,fluoro guided injection,arthritis rt glenohumeral joint,. The Pat ient has had persistent right shoulder pain. Noninvasive measures have been tried. To serve as bot h diagnostic and therapeutic, an injection under fluoroscopy was recommended. The risks of the proce dure were discussed with their Orthopedic provider and the patient elected to proceed. TECHNIQUE: 2D and realtime digital imaging was performed. CONTRAST MATERIAL: Water soluble contrast was utilized. COMPARISON: No exams were available for comparison FINDINGS: The Patient was greeted in the fluoroscopy room. The correct side was identified and the consent was reviewed with the patient and was signed. The patient was properly positioned on the fluoroscopy ta ble. The right shoulder was then prepped with Chloraprep and draped. The right shoulder injection s tarting point was identified by the bony landmarks and fluoroscopy. The skin and soft tissue in the tract of the injection was anesthetized with 1% Lidocaine. A spinal needle was then inserted into th e right shoulder joint at the level of the glenohumeral joint under fluoroscopic guidance. A small a mount of Omnipaque solution was injected to confirm intraarticular placement. Once confirmed, the ri ght shoulder was injected with 5cc of a solution containing 0.5% Bupivaine and 80 mg of Depo-Medrol. A bandaid was placed on the injection site. The patient tolerated the procedure well and left the d epartment in good condition. IMPRESSION: Successful right shoulder injection. RADIATION DOSE DELIVERED: Ka,r=3.04 mGy
[2023-05-26] MEDS: methylPREDNISolone ACETATE 80 MG/ML VIAL IM (13:57)
[2023-05-26] MEDS: Bupivacaine 0.5% Pres-Free 10 ML VIAL IJ (14:34)
[2023-05-26] MEDS: Omnipaque 300 MG/ML 10 ML BTL IJ (14:35)
== END ==
PROVIDERS: PCP Family Medicine; Visit Provider Student in an Organized Health Care Education/Training Program
DX: M19.011 Primary osteoarthritis, right shoulder (principal); S46.211A Strain of muscle, fascia and tendon of other parts of biceps, right arm, initial encounter; M25.511 Pain in right shoulder; X58.XXXA Exposure to other specified factors, initial encounter
CPT/HCPCS: 20610; 77002; J1040

== ENCOUNTER 2023-07-01 12:47 | Emergency (ER) | payer MEDICAID, SELFPAY ==
[2023-07-01] VITALS (19 sets, daily range): BP systolic 143–170; BP diastolic 70–99; PULSE 69–94; RESP 9–25; TEMP 37; O2SAT 100
--- NOTE | 2023-07-01 12:45 | RT.EKG_ITS ---
APPROVED REPORT Exam: Resting ECG Reason for Exam: dizziness/ faint Patient Location: E HR:83 bpm ECG Measurements Heart Rate 83 AXIS NC 124 P 65 QRSd 90 QRS 46 QT 362 T 52 QTc 425 Conclusion Sinus rhythm...normal P axis, V-rate 60- 99
--- NOTE | 2023-07-01 13:15 | DI.CT_ITS ---
Exam(s) CT BRAIN NECK CTA EXAM: CT BRAIN NECK CTA CLINICAL HISTORY: Dizziness, Headache. TECHNIQUE: Imaging Protocol: Axial CT angiography was performed with multi-slice acquisition and mu lti-planar and MIP reconstructions. CONTRAST MATERIAL: Intravenous: Omnipaque 350 Contrast volume:85 mL COMPARISON: CT CT BRAIN NECK CTA from 12/04/2022 FINDINGS: CT Head W/O and W contrast: Ventricles and Extra axial spaces: Normal in size and morphology for the patient's age. Hemorrhage: None. Cerebral parenchyma: No evidence of acute infarct or mass. Mild atrophy. Midline shift: None. Brainstem/Cerebellum: No acute findings.. Calvarium: Normal. Visualized Paranasal sinuses/Mastoids: Clear. Soft Tissues: Unremarkable. Enhancement: Normal. CTA Brain W: Internal Carotid Arteries: Petrous: Normal. Cavernous: Normal. Cerebral: Normal. Middle Cerebral Arteries: Right: No aneurysm, occlusion or significant stenosis. Left: No aneurysm, occlusion or significant stenosis. Anterior Cerebral Arteries: Right: No aneurysm, occlusion or significant stenosis. Left: No aneurysm, occlusion or significant stenosis. Posterior cerebral Arteries: Right: No aneurysm, occlusion or significant stenosis. Left: No aneurysm, occlusion or significant stenosis. Vertebral Arteries: Right: No aneurysm, occlusion or significant stenosis. Left: No aneurysm, occlusion or significant stenosis. Basilar Artery: No aneurysm, occlusion or significant stenosis. CTA Neck W: Common Carotid: Mild scattered calcification. Mild calcific plaque at the bulbs. Right: No dissection, occlusion or significant stenosis. Left: No dissection, occlusion or significant stenosis. External Carotid: Right: No dissection, occlusion or significant stenosis. Left: No dissection, occlusion or significant stenosis. Internal Carotid: Extremely tortuous bilaterally Right: No dissection, occlusion or significant stenosis. Left: No dissection, occlusion or significant stenosis. Vertebral Artery: Right: No dissection, occlusion or significant stenosis. Left: No dissection, occlusion or significant stenosis. Lung Apices: Normal. Bones: No acute abnormality. Degenerative changes. Soft Tissues: Normal. IMPRESSION: 1. CTA brain: Normal CTA examination of the [place] of [place]. 2. Head CT: Unremarkable CT Head. 3. CTA neck: Mild scattered calcific plaque along the common carotid arteries and at the common carot id bulbs. No significant stenosis. No evidence of dissection. RADIATION DOSE DELIVERED: 2,116.17mGy.cm Total DLP DATA REPOSITORY: All CT scans at this facility are submitted to the National Radiology Data Registry (NRDR) Dose Index Registry (DIR) with the [employer] ([employer]). RADIATION OPTIMIZATION: All CT scans at this facility use at least one of these dose optimization te chniques: automated exposure control; mA and/or kV adjustment per patient size (includes targeted exa ms where dose is matched to clinical indication); or iterative reconstruction.
--- NOTE | 2023-07-01 13:19 | ED.GENADUL_ITS ---
HPI General Mode of arrival: ambulatory . Date/Time Provider Initiated Documentation: 07/01/23 13:09 . Limitations to Documentation: no limitations . Information obtained by: patient, RN notes reviewed and old records reviewed . Related Data Home Medications Medication Instructions Recorded Confirmed aspirin 81 mg tablet,delayed 81 mg PO DAILY 08/21/12 07/01/23 release (Lo-Dose Aspirin) multivitamin (Once Daily tablet) 1 ea PO DAILY 08/21/12 07/01/23 atorvastatin 10 mg tablet 10 mg PO DAILY #90 tab-caps 08/29/20 07/01/23 albuterol sulfate 90 mcg/actuation 2 puff inhalation QID PRN 01/23/21 07/01/23 aerosol inhaler shortness of breath or wheezing terazosin 1 mg capsule 1 mg PO QHS #90 tab-caps 11/17/22 07/01/23 acetaminophen 325 mg capsule 325 mg PO ONCE PRN 03/23/23 07/01/23 (Tylenol) ibuprofen 200 mg tablet 200 mg PO Q6H PRN 03/23/23 07/01/23 amlodipine 10 mg tablet 10 mg PO DAILY #90 tab-caps 05/13/23 07/01/23 metoprolol succinate 50 mg 75 mg (1.5 x 50 mg) PO DAILY #135 06/23/23 07/01/23 tablet,extended release 24 hr tab-caps ondansetron 4 mg disintegrating 4 mg PO Q8H PRN nausea and 07/01/23 tablet vomiting 4 days #9 tabs Previous Rx's Medication Instructions Recorded atorvastatin 10 mg tablet 10 mg PO DAILY #90 tab-caps 08/29/20 terazosin 1 mg capsule 1 mg PO QHS #90 tab-caps 11/17/22 amlodipine 10 mg tablet 10 mg PO DAILY #90 tab-caps 05/13/23 metoprolol succinate 50 mg 75 mg (1.5 x 50 mg) PO DAILY #135 06/23/23 tablet,extended release 24 hr tab-caps ondansetron 4 mg disintegrating 4 mg PO Q8H PRN nausea and 07/01/23 tablet vomiting 4 days #9 tabs Allergies Allergy/AdvReac Type Severity Reaction Status Date / Time bupropion HCl AdvReac Intermediate heart Verified 05/27/23 10:38 [From Wellbutrin] pounding General Stated Complaint: GenMedical SHARDA: 3 Review of Systems All systems reviewed & are unremarkable except as noted in HPI and below Constitutional Constitutional: Reports as per HPI and Reports headache(s) Eyes Eyes: Denies blurry vision, Denies diplopia, Reports floaters, Denies eye pain, Denies photophobia and Reports spots in vision ENT Ears, Nose, Mouth, and Throat: Reports dizziness and Reports headache(s) Cardiovascular Cardiovascular: Reports as per HPI (Chest tightness), Denies dyspnea and Denies dyspnea on exertion Respiratory Respiratory: Denies chest congestion, Denies cough, Denies hemoptysis, Denies dyspnea and Denies dyspnea on exertion Gastrointestinal Gastrointestinal: Denies abdominal pain, Denies diarrhea, Reports nausea and Denies vomiting Neurologic Neurologic: Reports as per HPI, Reports dizziness, Reports headache(s) and Denies localized weakness Exam Narrative Exam Narrative: Constitutional: Alert and oriented x3. Appears stated age. Normal body habitus. Head: Normocephalic, no trauma. Eyes: Pupils PERRL, Red reflex noted, EOM's intact. Eyelids symmetrical without lesions, discharge, or swelling. ENT: Bilateral TM's WNL, External ear normal to inspection, no mastoid TTP, swelling, or erythema, Nasal turbinates WNL, no nasal discharge. Normal dentition, Posterior pharynx WNL, no exudate. Chest: RRR, Normal S1, S2, distal pulses intact. Resp: Lungs clear to auscultation bilaterally, no wheezes, rales, or rhonchi. Abdomen: Soft, non-distended, Normoactive bowel sounds all 4 quads. Musculoskeletal: Normal gait, 5/5 strength to all four extremities. Skin: No suspicious rashes or lesions. Capillary refill less than 2 sec. Neurologic: Cranial nerves II-XII intact. Alert and oriented x 3. Motor: No deficits noted. Sensory: Intact bilaterally all 4 extremities. No facial droop, no pronator drift, no leg drop bilaterally. 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 Intact dorsiflexion and pedal flexion. Of note there is some slight tremor noted to the upper extremities bilaterally. Hematologic/Lymphatic: No ecchymosis, no lymphadenopathy. Course Vital Signs Vital signs: Vital Signs Temperature 37.0 C 07/01/23 12:52 Pulse 93 H 07/01/23 12:52 Respiratory Rate 18 07/01/23 12:52 Blood Pressure 170/86 H 07/01/23 12:52 Pulse Oximetry 100 07/01/23 12:52 Temperature 37.0 C 07/01/23 12:52 Pulse 93 H 07/01/23 12:52 Pulse 94 H 07/01/23 13:11 Respiratory Rate 15 07/01/23 13:11 Respiratory Effort Normal 07/01/23 13:13 Respiratory Depth Normal 07/01/23 13:11 Respiratory Pattern Normal 07/01/23 13:11 Blood Pressure 170/86 H 07/01/23 12:52 Pulse Oximetry 100 07/01/23 12:52 Oxygen Delivery Method Room Air 07/01/23 12:52 Oxygen Flow Rate 0 07/01/23 12:52 Medical Decision Making 63-year-old male presents to the ER with a chief complaint of head pressure, spots in his eyes, dizziness lightheadedness. He reports that he has had workup for his sinus type headaches the last year by his PCP. He reports that he has worsened over the last few days. He endorses dizziness nausea and fatigue and new visual disturbances. He has no focal motor neurodeficits noted on exam, no pronator drift, no leg drop he does have some mild tremors noted to his upper extremities. He is a daily drinker he reports his last drink was a day and a half ago. He does have a past medical history of hypertension, diverticulosis, GERD hyponatremia he does take amlodipine and metoprolol which he did take this morning. Denies any recent head injuries. He also endorses some chest tightness with exertion. No significant lower extremity edema noted. Differential diagnosis includes but not limited to CVA, alcohol withdrawal, however he is not tachycardic he is somewhat hypertensive on initial exam, anxiety, CAD, migraine. Workup ordered including CBC CMP, troponin, EKG, urinalysis ethyl alcohol level UDS, CTA head and neck. On patient reevaluation he reports that he feels somewhat tired his nausea is improved. He does still complain of some head pressure which has since moved to the back of his head. Awaiting CT. CBC shows no leukocytosis, sodium 135, anion gap 12.2 glucose 128 initial troponin within normal limits, urinalysis is pending at this time. Alcohol level is less than 3.0 CT head largely within normal limits. See official results below. Patient is still complaining of some pressure in his head will give him Toradol plan to discharge with follow-up with PCP I will send him home with some Zofran and Toradol. This text was generated using OpenRouteation system, please disregard any oddities of phrase or misspellings. Imaging Data Radiologic Study: Imaging: CT Scan Radiologist's impression: EXAM: CT BRAIN NECK CTA CLINICAL HISTORY: Dizziness, Headache. TECHNIQUE: Imaging Protocol: Axial CT angiography was performed with multi- slice acquisition and multi-planar and MIP reconstructions. CONTRAST MATERIAL: Intravenous: Omnipaque 350 Contrast volume:85 mL COMPARISON: CT CT BRAIN NECK CTA from 12/04/2022 FINDINGS: CT Head W/O and W contrast: Ventricles and Extra axial spaces: Normal in size and morphology for the patient's age. Hemorrhage: None. Cerebral parenchyma: No evidence of acute infarct or mass. Mild atrophy. Midline shift: None. Brainstem/Cerebellum: No acute findings.. Calvarium: Normal. Visualized Paranasal sinuses/Mastoids: Clear. Soft Tissues: Unremarkable. Enhancement: Normal. CTA Brain W: Internal Carotid Arteries: Petrous: Normal. Cavernous: Normal. Cerebral: Normal. Middle Cerebral Arteries: Right: No aneurysm, occlusion or significant stenosis. Left: No aneurysm, occlusion or significant stenosis. Anterior Cerebral Arteries: Right: No aneurysm, occlusion or significant stenosis. Left: No aneurysm, occlusion or significant stenosis. Posterior cerebral Arteries: Right: No aneurysm, occlusion or significant stenosis. Left: No aneurysm, occlusion or significant stenosis. Vertebral Arteries: Right: No aneurysm, occlusion or significant stenosis. Left: No aneurysm, occlusion or significant stenosis. Basilar Artery: No aneurysm, occlusion or significant stenosis. CTA Neck W: Common Carotid: Mild scattered calcification. Mild calcific plaque at the bulbs. Right: No dissection, occlusion or significant stenosis. Left: No dissection, occlusion or significant stenosis. External Carotid: Right: No dissection, occlusion or significant stenosis. Left: No dissection, occlusion or significant stenosis. Internal Carotid: Extremely tortuous bilaterally Right: No dissection, occlusion or significant stenosis. Left: No dissection, occlusion or significant stenosis. Vertebral Artery: Right: No dissection, occlusion or significant stenosis. Left: No dissection, occlusion or significant stenosis. Lung Apices: Normal. Bones: No acute abnormality. Degenerative changes. Soft Tissues: Normal. IMPRESSION: 1. CTA brain: Normal CTA examination of the [place]. 2. Head CT: Unremarkable CT Head. 3. CTA neck: Mild scattered calcific plaque along the common carotid arteries and at the common carotid bulbs. No significant stenosis. No evidence of dissection. Lab Data Lab results reviewed: Yes I reviewed the patient's lab results. Labs: Laboratory Tests Range/Units 07/01/23 07/01/23 13:15 13:15 WBC (4.4-10.8) 10^3/uL 9.74 RBC (4.36-5.78) 10^6/uL 4.92 Hgb (13.5-17.5) g/dL 15.4 Hct (40.0-50.0) % 43.7 MCV (80-95) fL 89 MCH (27.0-33.0) pg 31.3 MCHC (32.0-36.0) % 35.2 RDW (11.8-14.1) % 13.2 Plt Count (130-400) 10^3/uL 345 MPV (8.0-11.0) fL 9.1 Immature Gran % 0.4 Neutrophils % 64.2 Lymphocytes % 24.5 Monocytes % 9.9 Eosinophils % 0.4 Basophils % 0.6 Nucleated RBC % (0.0-0.3) % 0.0 Absolute Neutrophils (1.2-6.7) 10^3/uL 6.25 Absolute Lymphocytes (1.2-3.4) 10^3/uL 2.39 Absolute Monocytes (0.1-0.8) 10^3/uL 0.96 H Absolute Eosinophils (0.0-0.7) 10^3/uL 0.04 Absolute Basophils (0.0-0.2) 10^3/uL 0.06 Sodium (136-145) mmol/L 135 L Potassium (3.5-5.1) mmol/L 3.8 Chloride (98-107) mmol/L 99 Carbon Dioxide (21.0-32.0) mmol/L 23.8 Anion Gap (3-11) mmol/L 12.2 H BUN (7-18) mg/dL 12 Creatinine (0.70-1.30) mg/dL 1.0 Est GFR (CKD-EPI 2020) (mL/min/1.73m2) 84.57 Glucose (74-106) mg/dL 128 H Calcium (8.5-10.1) mg/dL 9.5 Magnesium (1.8-2.4) mg/dL 2.4 Total Bilirubin (0.2-1.0) mg/dL 0.6 AST (15-37) U/L 15 ALT (16-63) U/L 17 Alkaline Phosphatase (46-116) U/L 49 Troponin I (< or =60) ng/L < 50 Total Protein (6.4-8.2) g/dL 8.0 Albumin (3.4-5.0) g/dL 4.4 Ethyl Alcohol (<10) mg/dL < 3.0 Cancelled Quality:SDOH Health Related Social Needs: No Data to Display PFSH All Active Problems (Updated 07/01/23 @ 15:26 by Raquel Camilo NP) Headache (Acute) Pressure in head (Acute) Chronic sinusitis (Acute) Traumatic rupture of right proximal biceps tendon (Acute) Arthritis of right glenohumeral joint (Acute) Chronic neck pain (Acute) Tendinitis of long head of biceps brachii of left shoulder (Acute) Arthritis of left glenohumeral joint (Acute) Intra-articular injection: 11/19/2021, 07/22/2022 Impaired fasting glucose (Chronic 08/20/11) Alcohol use disorder (Chronic) Osteoarthritis of lumbar spine (Chronic) Tobacco use disorder (Chronic 10/19/11) Osteoarthritis of cervical spine (Chronic 03/25/16) Cervical MRI 03/2016 [facility]: Mild degenerative disc disease and facet arthropathy of the cervical spine with multilevel neural foramen narrowing Microscopic hematuria (Chronic 08/20/11) NEG work-up [address] Aldo Leblanc (cystoscopy, Abd CT & Abd x-ray) 12/[address] Torres: CT urogram showing (L) kidney nonobstructing stone, normal cystoscopy Annual UA, repeat workup 3-5 years if persistent Hyperlipidemia (Chronic 08/20/11) 08/2020 labs: adequate response to moderate statin, continue Headache (Chronic 08/20/11) Had been getting tramadol Rx 10/month --> [facility] Neuro consult 01/2016 --> NEG brain MRI --> gabapentin Essential hypertension (Chronic 08/20/11) Goal BP </=140/90 Depression (Chronic 03/07/15) Wellbutrin d/c'ed 03/2015 due to side effects. Sertaline d/c'ed 04/2015 due to side effects. Fluoxetine d/c'ed 06/2015 due to side effects. Trazodone d/c'ed 03/2016 due to side effects. BPH (benign prostatic hyperplasia) (Chronic 11/02/17) Medical History Adenomatous polyps Colon polyp, hyperplastic Diverticulosis GERD (gastroesophageal reflux disease) (11/19/14) Herpes zoster (11/26/14) Hyponatremia Hospitalization 11/2017; 2/2 EtOH, dehydration, and medication Positive self-administered antigen test for COVID-19 (~10/01/22) Provoked seizure (12/22/17) 11/2017 hospitalization; 2/2 EtOH, dehydration, and medication Subclinical hypothyroidism (09/22/16) Tubular adenoma (09/15/11) 2011 & 2014 colonoscopies +FH colorectal CA ([facility]) Surgical History blood vessel removed L side chest Colonoscopy - IV Sedation (09/05/11) w/ BX Colonoscopy - IV Sedation (12/27/14) w/ BX Cystoscopy (12/29/17) Microscopic hematuria, no pathology found. Dr. Torres History of colonoscopy with polypectomy (~06/13/20) nerve block cervical/thoracic-[facility] Pain Clinic for cervical spondylosis without myelopathy Family History Mother Diabetes Dementia Alcohol abuse Hypertension Heart disease Father , Stomach & lung CA Diabetes Cancer Hypertension Heart disease Sister Essential hypertension Diabetes Hypertension Grandfather No problems noted. Grandfather No problems noted. Sister Hypertension Maternal Grandfather Alcohol abuse Paternal Grandfather Colon cancer Social History Smoking/Tobacco Use Status: Current every day Tobacco Type: cigarettes Smoking packs per day: 0.75 Smoking cigarettes per day: 15.0 Years smoked: 44 Smoking pack-years: 33.00 Tobacco: How many years used: 46 Quit status: considering quitting Smoking risk assessment performed?: Yes Alcohol Intake: current Alcohol Intake frequency: 3 or more drinks per day Alcohol type: beer Drug use: Never Substance use type: does not use Adopted: No Caregiver/Support person: No Foster care: No Housing: house Communication Needs: None Do you need help understanding health information?: Rarely 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 Pets and animals: No Sexually active: No Do you think of yourself as: bisexual Current gender identity: male What is your relationship status?: never How often do you talk on the phone with friends or family?: three or more times per week How often do you get together with friends or relatives?: once per week Panel score (0-1 are the most socially isolated patients): 1 Rachel/Jewish: Amish Seatbelt use: always Helmet use: No Drive intox or ride 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 Do you feel safe at home: Yes Additional Social history: lives alone PAWSS Have you Been Recently Intoxicated or Drunk Within the Last 30 days?: No Have you Ever Experienced Previous Episodes of Alcohol Withdrawal?: No Have you ever Experienced Withdrawal Seizures?: No Have you ever Experienced Delirium Tremens(DT)s?: No Have you ever undergone Alcohol Rehabilitation Treatment (i.e, inpt ot outpatient treatment programs)?: No Have you ever Experienced Blackouts?: No Have you ever Combined Alcohol with other Downers within the last 90 days?: No Have you ever Combined Alcohol with any other Substance of Abuse during the last 90 days?: No Positive Blood Alcohol level on Presentation? [PCS.BAL]: No Evidence of Increased Autonomic Activity (i.e. HR>120, tremor, sweating, agitation, nausea)?: No Result: 0 Discharge Plan Disposition Patient Disposition: Home Condition: Stable Discharge Details Clinical Impression: Headache Primary Care Provider: Bret Carrera ED Provider: Raquel Camilo Home Meds and New Rx's Prescriptions: New ondansetron 4 mg tablet,disintegrating 4 mg PO Q8H PRN (Reason: nausea and vomiting) 4 Days Qty: 9 0RF Rx Instructions: Take 1 tablet up to 3 times daily as needed for nausea and vomiting 20 minutes prior to meals. Continued albuterol sulfate 90 mcg/actuation HFA aerosol inhaler 2 puff inhalation QID PRN (Reason: shortness of breath or wheezing) Patient Comments: Please use 2/day x 1 week. Rx Instructions: Dispense brand best covered under insurance terazosin 1 mg capsule 1 mg PO QHS Qty: 90 3RF acetaminophen [Tylenol] 325 mg capsule 325 mg PO ONCE PRN ibuprofen 200 mg tablet 200 mg PO Q6H PRN multivitamin [Once Daily] 1 EACH tablet 1 ea PO DAILY aspirin [Lo-Dose Aspirin] 81 MG tablet,delayed release (DR/EC) 81 mg PO DAILY atorvastatin 10 mg tablet 10 mg PO DAILY Qty: 90 3RF amlodipine 10 mg tablet 10 mg PO DAILY Qty: 90 3RF metoprolol succinate 50 mg tablet extended release 24 hr 75 mg PO DAILY Qty: 135 3RF Discharge Instructions Instructions: General Headache (ED) Additional Instructions: At this time we have ruled out any emergent condition including bleeding in your brain, aneurysm, other reasons that might cause your symptoms. Please follow-up with your primary care provider and/or neurologist if this continues. This may also be a migraine headache. You may take a little bit of Benadryl which may help with the symptoms increase oral fluids and alternate Tylenol ibuprofen. Follow up with primary care provider in 3-5 days. Return to ED sooner if any worsening or concerns. Increase oral fluids. Please take Tylenol or Ibuprofen with food every 4-6 hours as needed for pain and swelling. Please take the nausea medications as directed. Referrals: Bret Carrera DO [Primary Care Provider] - 3 days
[2023-07-01] MEDS: Ondansetron 4 MG/2 ML VIAL IVP (13:27)
[2023-07-01] MEDS: Meclizine 25 MG TAB PO (13:27)
[2023-07-01] MEDS: Normal Saline 1,000 ML 1000 ML IV (13:27)
[2023-07-01 13:28] LABS: Abs Immature Grans 0.04 10^3/uL (0.0-0.06); Absolute Basophil Count 0.06 10^3/uL (0.0-0.2); Absolute Eosinophil Count 0.04 10^3/uL (0.0-0.7); Absolute Lymphocyte Count 2.39 10^3/uL (1.2-3.4); Absolute Monocyte Count 0.96 10^3/uL (0.1-0.8); Absolute Neutrophil Count 6.25 10^3/uL (1.2-6.7); Basophils % 0.6; Eosinophils % 0.4; HCT 43.7 % (40.0-50.0); HGB 15.4 g/dL (13.5-17.5); Immature Grans % 0.4; Lymphocytes % 24.5; MCH 31.3 pg (27.0-33.0); MCHC 35.2 % (32.0-36.0); MCV 89 fL (80-95); MPV 9.1 fL (8.0-11.0); Monocytes % 9.9; Neutrophils % 64.2; Platelet Count 345 10^3/uL (130-400); RBC 4.92 10^6/uL (4.36-5.78); RDW 13.2 % (11.8-14.1); RDW-SD 43.3 fL; WBC 9.74 10^3/uL (4.4-10.8)
[2023-07-01 13:45] LABS: ALT 17 U/L (16-63); AST 15 U/L (15-37); Albumin 4.4 g/dL (3.4-5.0); Alkaline Phosphatase 49 U/L (46-116); Anion Gap 12.2 mmol/L (3-11); BUN 12 mg/dL (7-18); Bilirubin, Total 0.6 mg/dL (0.2-1.0); CO2 23.8 mmol/L (21.0-32.0); Calcium 9.5 mg/dL (8.5-10.1); Chloride 99 mmol/L (98-107); Estimated GFR 84.57 (mL/min/1.73m2); Glucose 128 mg/dL (74-106); Magnesium 2.4 mg/dL (1.8-2.4); Potassium 3.8 mmol/L (3.5-5.1); Sodium 135 mmol/L (136-145); Troponin I < 50 ng/L (< or =60)
[2023-07-01 13:46] LABS: ETHANOL BLOOD < 3.0 mg/dL (<10)
[2023-07-01 14:25] LABS: Bilirubin Negative (Negative); Blood Small (Negative); Clarity Clear (Clear); Glucose Negative (Negative); Ketones Trace mg/dL (Negative); Leukocyte Esterase Negative (Negative); Nitrite Negative (Negative); Specific Gravity 1.015 (1.005-1.025); Urobilinogen 0.2 mg/dL (Up to 0.2); pH 6.5 (5-8)
[2023-07-01 14:33] LABS: Bacteria Rare HPF (Negative); C & S Indicated? No; Casts Negative LPF (Negative); Crystals Negative HPF (Negative); Epithelial Cells Negative HPF (Negative); Mucus Negative (Negative); Other Cells Negative (Negative); WBC Negative HPF (0-5)
[2023-07-01] MEDS: Normal Saline - Diluent 50 ML VIAL IJ (14:34)
[2023-07-01 14:37] LABS: *AMPHETAMINES SCREEN URINE Negative (Negative); *BARBITURATES SCREEN URINE Negative (Negative); *BENZODIAZEPINES SCREEN URINE Negative (Negative); Cannabinoids THC Negative (Negative); Cocaine Screen,Urine Negative (Negative); METHADONE URINE SCREEN Negative (Negative); OPIATES URINE SCREEN Negative (Negative); Tricyclic Antidepressants Negative (Negative)
[2023-07-01] MEDS: Omnipaque 350 MG/ML 100 ML BTL IJ (14:37)
[2023-07-01] MEDS: Ketorolac 15 MG/ML VIAL IVP (15:31)
== END 2023-07-01 15:37 | disposition home or self-care (01) ==
PROVIDERS: Emergency Provider Registered Nurse Emergency; PCP Family Medicine
DX: R51.9 Headache, unspecified (principal); H43.393 Other vitreous opacities, bilateral; I10 Essential (primary) hypertension; F17.210 Nicotine dependence, cigarettes, uncomplicated; Z79.82 Long term (current) use of aspirin
CPT/HCPCS: 70496; 70498; 80053; 80307; 93005; 96361; 96374; 99285; 80320; 81003; 81015; 83735; 84484; 85025; 93010; 99284; J1885; J2405; J3490

== ENCOUNTER 2023-08-10 14:39 | Outpatient (CLI) | payer MEDICAID, SELFPAY ==
[2023-08-10 12:21] LABS: ESR 7 mm/hr (0-20)
[2023-08-10 12:53] LABS: C-Reactive Protein < 0.50 mg/dL (<or=0.5)
[2023-08-11 11:06] LABS: Lyme Ab w Rflx to Lyme Confirm Negative (Negative)
[2023-08-12 16:12] LABS: Anaplasma phagocytophilum Negative (Negative); B. miyamotoi PCR Negative (Negative); Babesia divergens/MO-1 Negative (Negative); Babesia duncani Negative (Negative); Babesia microti Negative (Negative); Ehrlichia chaffeensis Negative (Negative); Ehrlichia ewingii/canis Negative (Negative); Ehrlichia muris eauclairensis Negative (Negative)
== END 2023-08-10 14:40 | disposition home or self-care (01) ==
LOC: LBO 14:39
PROVIDERS: PCP Family Medicine; Visit Provider Family Medicine
DX: R51.9 Headache, unspecified (principal)
CPT/HCPCS: 36415; 85652; 87798; 86140; 86618

== ENCOUNTER → 2023-09-30 00:36 | Outpatient (CLI) | payer MEDICAID, SELFPAY ==
--- NOTE | 2023-09-30 07:15 | DI.MRI_ITS ---
Exam(s) MR BRAIN WO EXAM: MR BRAIN WO CLINICAL HISTORY: new, worsening headaches,R51.9 TECHNIQUE: Multiplanar multisequence MRI of the brain was performed. COMPARISON: MR MRI - BRAIN WO CONTRAST from 11/21/[address] BRAIN NECK CTA from 12/04/2022 FINDINGS: VENTRICLES AND EXTRA AXIAL SPACES: Normal in size and morphology for the patient's age. MIDLINE SHIFT: None. CEREBRAL PARENCHYMA: No focus of restricted diffusion to suggest acute infarct. No space-occupying le jonathan identified. There are few scattered foci of hyperintense signal in the white matter on the FLAIR and T2 weighted images likely reflecting small vessel ischemic disease. HEMORRHAGE: None. BRAINSTEM/CEREBELLUM: Normal. CALVARIUM: Normal. VISUALIZED PARANASAL SINUSES/MASTOIDS:Clear. CREEK OF SELF: Normal flow void. PITUITARY GLAND: Unremarkable. OTHER FINDINGS: None. IMPRESSION: 1. No acute intracranial process. 2. There are a few foci of hyperintense signal seen in the white matter on the FLAIR and T2 weighted images consistent with chronic microvascular ischemic disease. DATA REPOSITORY:
== END ==
PROVIDERS: PCP Family Medicine; Visit Provider Nurse Practitioner Adult Health
DX: I67.82 Cerebral ischemia (principal)
CPT/HCPCS: 70551

== ENCOUNTER → 2023-11-07 01:00 | Outpatient (CLI) | payer MEDICAID, SELFPAY ==
--- NOTE | 2023-11-07 07:00 | ETT_ITS ---
APPROVED REPORT Exam: Exercise Treadmill Patient Location: Out-Patient Room/Bed: Stress Nurse: Carlos Solis RN Ordering Provider:MELINDA FISCHER, Contact Number: [phone] BMI: 22.82 Baseline Rhythm: Sinus Rhythm Indications: Chest tightness Medical History Medical History: GERD, Hyponatremia, Subclinical hypothyroidism, ETOH, HLD. Cardiac Medications: Metoprolol, Amlodipine, Atorvastatin, ASA. Allergies: Bupropion. Cardiac Risk Factors: HTN, Hyperlipidemia, smoker. Exercise History: Sedentary Lung Sounds: Clear to auscultation Heart Sounds: Regular Stress Test Details Test: Exercise stress testing was performed using a Sky protocol. Rest Stress HR Resting HR Supine: 92 bpm Max Heart Rate (APMHR): 157 bpm Resting HR Standin bpm Target HR (85% APMHR): 133 bpm Max HR Achieved: 143 bpm % of APMHR: 91 Recovery HR: 92 bpm HR response to stress: Normal HR response to stress BP Resting BP Supine: 142/78 mmHg Resting BP Standin/82 mmHg Max BP: 192/102 mmHg Recovery BP: 148/82 mmHg BP response to stress: Normal blood pressure response to stress. ECG Resting ECG: Sinus Rhythm Stress ECG: Sinus Tachycardia ST Change: No significant ST segment changes noted Arrhythmia: VPC's Comment: Frequent unifocal PVC's. Mild ST depressions II, III, AVF. Recovery ECG: Sinus Rhythm Recovery ST Change: No significant ST segment changes noted Recovery Arrhythmia: None Clinical Reason for Termination: Fatigue, Target HR Achieved Stress Symptoms: General Fatigue Exercise duration: 2 min05 sec Highest Stage Reached: Stage 1: 1.7 mph at 10% grade. Exercise capacity: 4.64 METs Angina Score: None Butt Treadmill Score: 1.2 Rate Pressure Product: [id number] Stress ECG Conclusion 1. Resting electrocardiogram was normal 2. Patient exercised on the Sky protocol and completed a workload of 4.64 METS, stopping due to fat igue 3. Normal heart rate and blood pressure response to exercise. The patient achieved 91% of predicted heart rate for age 4. There was no electrocardiographic evidence of myocardial ischemia 5. PVCs were noted Butt Treadmill Score is 1.2 which is Moderate risk. Stress Test Summary STAGE Time (mins) Speed (mph) Grade (%) HR BP SpO2 SYMPTOMS METS Supine 92 142/78 98 Standing 101 144/82 98 1 3 1.7 10 143 4.5 1 min recovery 130 192/102 98 3 min recovery 101 170/90 98 6 min recovery 92 148/82 98
== END ==
PROVIDERS: PCP Family Medicine; Visit Provider Family Medicine
DX: R07.89 Other chest pain (principal); I49.3 Ventricular premature depolarization
CPT/HCPCS: 93017

== ENCOUNTER 2023-11-16 11:38 | Outpatient (CLI) | payer MEDICAID, SELFPAY ==
[2023-11-16 17:59] LABS: PSA, Screening 0.6 ng/mL (<=4.5)
== END 2023-11-16 11:39 | disposition home or self-care (01) ==
LOC: LBO 11:40
PROVIDERS: PCP Family Medicine; Visit Provider Nurse Practitioner Gerontology
DX: R39.9 Unspecified symptoms and signs involving the genitourinary system (principal)
CPT/HCPCS: 36415; 84153

== ENCOUNTER 2024-02-09 03:27 | Outpatient (CLI) | payer MEDICAID, SELFPAY ==
[2024-02-09 08:21] LABS: Abs Immature Grans 0.02 10^3/uL (0.0-0.06); Absolute Basophil Count 0.04 10^3/uL (0.0-0.2); Absolute Eosinophil Count 0.09 10^3/uL (0.0-0.7); Absolute Monocyte Count 0.83 10^3/uL (0.1-0.8); Absolute Neutrophil Count 4.65 10^3/uL (1.2-6.7); Basophils % 0.5 %; Eosinophils % 1.2 %; HCT 40.9 % (40.0-50.0); HGB 14.1 g/dL (13.5-17.5); Immature Grans % 0.3 %; Lymphocytes % 24.2 %; MCH 31.8 pg (27.0-33.0); MCHC 34.5 % (32.0-36.0); MCV 92 fL (80-95); MPV 8.7 fL (8.0-11.0); Monocytes % 11.2 %; Neutrophils % 62.6 %; Platelet Count 282 10^3/uL (130-400); RBC 4.43 10^6/uL (4.36-5.78); RDW 13.3 % (11.8-14.1); RDW-SD 45.3 fL; WBC 7.43 10^3/uL (4.4-10.8)
[2024-02-09 09:18] LABS: ALT 24 U/L (16-63); AST 24 U/L (15-37); Alkaline Phosphatase 58 U/L (46-116); BUN 11 mg/dL (7-18); Bilirubin, Total 0.56 mg/dL (0.2-1.0); CREATININE 0.9 mg/dL (0.70-1.30); Calcium 8.7 mg/dL (8.5-10.1); Chloride 100 mmol/L (98-107); Estimated GFR 95.97 (mL/min/1.73m2); Glucose 123 mg/dL (74-106); Sodium 138 mmol/L (136-145); TSH (W/Ref FT4) 1.54 uIU/mL (0.36-3.74); Total Protein 7.3 g/dL (6.4-8.2)
== END 2024-02-09 03:28 | disposition home or self-care (01) ==
LOC: LBO 03:27
PROVIDERS: PCP Family Medicine; Referring Provider Family Medicine; Visit Provider Family Medicine
DX: R63.4 Abnormal weight loss (principal)
CPT/HCPCS: 36415; 80053; 84443; 85025

== ENCOUNTER 2024-03-07 01:00 | Outpatient (CLI) | payer MEDICAID, SELFPAY ==
--- NOTE | 2024-03-07 06:30 | DI.CTLCSR_ITS ---
Exam(s) CT CHEST LUNG CANCER SCREEN EXAM: CT CHEST LUNG CANCER SCREEN CLINICAL HISTORY: Screening for lung cancer,smoker, F17.210 TECHNIQUE: Imaging Protocol: Axial computed tomography images with coronal and sagittal reformatted images were created and reviewed COMPARISON: CT CT CHEST LUNG CANCER SCREEN from 10/18/2022 FINDINGS: Tracheobronchial tree: Patent where visualized. No bronchiectasis. Pulmonary parenchyma: No consolidation or dominant measurable mass. No architectural distortion. Lung Nodules: None. Mediastinum and Marianne: No dominant adenopathy or fluid collection. The esophagus is unremarkable. Thyroid gland: Unremarkable. Lymph nodes: Unremarkable. Pleura: No effusion or pneumothorax. Heart: The heart is not dilated. Coronary artery calcifications are present. No pericardial effusion . Aorta: The ascending thoracic aorta measures 4.1 x 4.1 cm. Previously it measured 3.9 cm.Atheroscle rotic calcifications are present. Upper abdomen: 2 mm nonobstructing left upper pole renal stone. Soft Tissues: Unremarkable. Bones: Age-appropriate degenerative changes are seen in the spine. IMPRESSION: No suspicious pulmonary nodules are seen. Lung RADS Cat 1 - Negative: No nodules and definitely benign nodules Lung-RADS 1.0 CATEGORIES: Category 0 - Prior chest CT exam(s) being located for comparison. Category 1 - Annual screening in 12 months. No nodules or definitely benign nodules. Category 2 - Annual screening in 12 months. Benign appearance. Nodules with low likelihood of becomin g active cancer. Category 3 - 6-month follow-up. Probably benign. Short-term follow-up suggested. Nodules with low lik elihood of becoming active cancer. Category 4A - 3-month follow-up and CT/PET if >8 mm in size. Suspicious finding. Findings which requi re additional testing. Category 4B - Findings which require additional testing and tissue sampling. Suspicious finding. Category 4X - Category 3 or 4 nodules with additional features or imaging findings that increases the suspicion of malignancy. Modifier S- Potentially clinically significant finding. (Non lung cancer) RADIATION DOSE DELIVERED: 23.82mGy.cm Total DLP 23.82mGy.cmTotal DLP DATA REPOSITORY: All CT scans at this facility are submitted to the National Radiology Data Registry (NRDR) Dose Index Registry (DIR) with the [employer] (ACR). RADIATION OPTIMIZATION: All CT scans at this facility use at least one of these dose optimization te chniques: automated exposure control; mA and/or kV adjustment per patient size (includes targeted exa ms where dose is matched to clinical indication); or iterative reconstruction.
== END 2024-03-07 01:20 ==
LOC: DI 01:00
PROVIDERS: PCP Family Medicine; Visit Provider Family Medicine
DX: F17.210 Nicotine dependence, cigarettes, uncomplicated (principal); Z12.2 Encounter for screening for malignant neoplasm of respiratory organs
CPT/HCPCS: 71271

== ENCOUNTER 2025-02-25 10:52 | Outpatient (CLI) | payer MEDICAID, SELFPAY ==
[2025-02-25 18:17] LABS: PSA, Screening 0.7 ng/mL (<=4.5)
== END 2025-02-25 10:53 | disposition home or self-care (01) ==
LOC: LBO 10:52
PROVIDERS: PCP Family Medicine; Visit Provider Nurse Practitioner Gerontology
DX: R39.9 Unspecified symptoms and signs involving the genitourinary system (principal)
CPT/HCPCS: 36415; 84153

== ENCOUNTER 2025-02-25 10:59 | Outpatient (REF) | payer MEDICAID, SELFPAY ==
[2025-02-25 12:11] LABS: Glucose Negative (Negative)
[2025-02-25 12:16] LABS: C & S Indicated? No; WBC Negative HPF (0-5)
== END 2025-02-25 11:00 | disposition home or self-care (01) ==
LOC: LBN 10:59
PROVIDERS: PCP Family Medicine; Visit Provider Nurse Practitioner Gerontology
DX: R31.29 Other microscopic hematuria (principal); N40.0 Benign prostatic hyperplasia without lower urinary tract symptoms
CPT/HCPCS: 81003; 81015

== ENCOUNTER 2025-03-11 02:21 | Outpatient (CLI) | payer MEDICAID, SELFPAY ==
--- NOTE | 2025-03-11 06:30 | DI.CTLCSR_ITS ---
Exam(s) CT CHEST LUNG CANCER SCREEN EXAM: CT CHEST LUNG CANCER SCREEN CLINICAL HISTORY: Screening for lung cancer,cigarette smoker,F17.200 TECHNIQUE: Imaging Protocol: Axial computed tomography images with coronal and sagittal reformatted images were created and reviewed. Lung Computer Aided Detection (CAD) was utilized. COMPARISON: CT CT CHEST WO from 09/15/[address] CHEST LUNG CANCER SCREEN from 10/18/[address] CHEST LUNG CANCER SCREEN from 03/07/2024 FINDINGS: Tracheobronchial tree: Patent where visualized. No bronchiectasis. Pulmonary parenchyma: No consolidation or dominant measurable mass. No architectural distortion. There is a calcified granuloma again seen in the right upper lobe. Lung Nodules: There are no suspicious pulmonary nodules. Mediastinum and Marianne: No dominant adenopathy or fluid collection. The esophagus is unremarkable. Thyroid gland: Unremarkable. Lymph nodes: Unremarkable. Pleura: No effusion or pneumothorax. Heart: The heart is not dilated. Moderate 2 vessel coronary artery calcification is present. No pericardial effusion. Aorta: The ascending thoracic aorta measures 4.2 x 4 cm. Atherosclerotic calcification is present. Upper abdomen: Unremarkable. Soft Tissues: There is mild gynecomastia. Bones: Within normal limits. IMPRESSION: There are no suspicious pulmonary nodules. Lung RADS Cat 1 - Negative: No nodules and definitely benign nodules Lung-RADS 1.0 CATEGORIES: Category 0 - Prior chest CT exam(s) being located for comparison. Category 1 - Annual screening in 12 months. No nodules or definitely benign nodules. Category 2 - Annual screening in 12 months. Benign appearance. Nodules with low likelihood of becoming active cancer. Category 3 - 6-month follow-up. Probably benign. Short-term follow-up suggested. Nodules with low likelihood of becoming active cancer. Category 4A - 3-month follow-up and CT/PET if >8 mm in size. Suspicious finding. Findings which require additional testing. Category 4B - Findings which require additional testing and tissue sampling. Suspicious finding. Category 4X - Category 3 or 4 nodules with additional features or imaging findings that increases the suspicion of malignancy. Modifier S- Potentially clinically significant finding. (Non lung cancer) RADIATION DOSE DELIVERED: 22.23mGy.cm Total DLP 22.23mGy.cmTotal DLP DATA REPOSITORY: All CT scans at this facility are submitted to the National Radiology Data Registry (NRDR) Dose Index Registry (DIR) with the [employer] ([employer]). RADIATION OPTIMIZATION: All CT scans at this facility use at least one of these dose optimization techniques: automated exposure control; mA and/or kV adjustment per patient size (includes targeted exams where dose is matched to clinical indication); or iterative reconstruction.
--- NOTE | 2025-03-11 06:30 | DI.US_ITS ---
Exam(s) US AAA SCREENING EXAM: US AAA SCREENING CLINICAL HISTORY: Routine, age-appropriate screening for aaa, smoker COMPARISON: CT CT ABDOMEN PELVIS WO/W from 11/24/2022 FINDINGS: Abdominal Aorta: Proximal: 2.2 x 2.2 cm Mid: 2.2 x 2.2 cm Distal: 0.4 x 2.4 cm Iliac's: Right: 1.0 x 1.0 cm Left: 1.2 x 1.1 cm Atherosclerotic calcification is present. IMPRESSION: No evidence of abdominal aortic aneurysm. DATA REPOSITORY:
== END 2025-03-11 02:41 ==
PROVIDERS: PCP Family Medicine; Visit Provider Family Medicine
DX: Z13.6 Encounter for screening for cardiovascular disorders; F17.210 Nicotine dependence, cigarettes, uncomplicated; Z12.2 Encounter for screening for malignant neoplasm of respiratory organs
CPT/HCPCS: 71271; 76706